=== PATIENT | female | born 1990 | race Caucasian/White ===

== ENCOUNTER 2017-06-11 16:12 | Emergency (ER) | payer MEDICAID, SELFPAY ==
[2017-06-11 16:14] VITALS: BP 122/77; PULSE 78; RESP 16; TEMP 36.8; O2SAT 98; BMI 22.1
[2017-06-11] MEDS: Ondansetron 4 MG/2 ML Vial IV ×2 (18:03→20:40)
[2017-06-11] MEDS: 0.9% Normal Saline 1,000 ML 150 ML IV (18:04)
[2017-06-11 18:08] LABS: Absolute Lymphocyte Count 1.79 X10^3/ul (0.83-4.51); Basophil# 0.07 X10^3/uL; Basophil% 0.5 % (0-1); Eosinophil# 0.06 X10^3/uL; Eosinophils% 0.5 % (0-5); Hematocrit 37.6 % (37-47); Hemoglobin 11.9 g/dl (12.0-15.0); Lymphocyte # 1.79 X10^3/ul (4.0); Lymphocyte % 14.1 % (19-41); Mean Corp Hgb Conc 31.6 g/gl (32-36); Mean Corpuscular Hgb 29.2 pg (27.0-32.0); Mean Corpuscular Volume 92.2 fL (81-99); Mean Platelet Vol. 10.3 fl (6.2-12.0); Monocyte# 0.76 X10^3/uL; Neutrophil # 10.04 X10^3/uL (2.7-7.7); Neutrophil % 78.7 % (47-70); Platelet Count 269 K/mm3 (150-450); RBC Distribution Width CV 13.3 % (11.6-14.6); RBC Distribution Width SD 44.2 fl (35.1-43.9); Red Blood Count 4.08 M/mm3 (4.2-5.4); White Blood Count 12.7 K/mm3 (4.4-11.0)
[2017-06-11 18:10] LABS: POSITIVE COUNT NO; POSITIVE DIFFERENTIAL NO; POSITIVE MORPHOLOGY NO
[2017-06-11 18:15] VITALS: BP 121/69; PULSE 75; RESP 16
[2017-06-11 18:18] LABS: Anion Gap 4 (5-15); BUN 13 mg/dL (7-18); BUN/Creat Ratio 17.9 RATIO (10-20); Calcium,Total 9.2 mg/dL (8.5-10.1); Chloride 108 mmol/L (98-107); Creatinine, Serum 0.72 mg/dL (0.55-1.02); EST Glomerular Filtration Rate 103 mL/min (>60); Est Glom Filt Rate - Afr Amer 124 mL/min (>60); Estimated Creatinine Clearance 115.14 ml/min; Glucose 96 mg/dL (74-106); Potassium 3.7 mmol/L (3.5-5.1); Sodium Level 140 mmol/L (136-145)
[2017-06-11 18:29] LABS: Pregnancy, Serum, hCG Quali. NEGATIVE Negative (0-9 Nonpreg)
[2017-06-11 19:28] LABS: Mucous, Urine 0 SEEN /hpf (<or=2+)
[2017-06-11 19:30] LABS: Color, Urine Yellow (Yellow); Glucose, Dipstick Normal (Normal); Ketone-Dipstick 15 mg/dl (Negative); Leukocyte Esterase-Dipstick 100 /ul (Negative); Nitrite-Dipstick Negative (Negative); Occult Blood-Urine 50 /ul (Negative); Protein-Dipstick 15 mg/dl (Negative); Specific Gravity, Urine 1.025 (1.002-1.030); Urine Bilirubin Dipstick Negative (Negative); Urine Clarity Sl. Cloudy (Clear); Urine Urobilinogen Normal (Normal)
[2017-06-11 19:38] LABS: Amorphous Sediment 1+; Bacteria 1+ /hpf (None Seen); Red Blood Cells-Urine 0-5 SEEN /hpf (0-5); Squamous Epithelial Cells - UA 10-25 SEEN /hpf (5-10); White Blood Cells 10-25 SEEN /hpf (0-5)
--- NOTE | 2017-06-11 20:17 | CT_ITS ---
STUDY: CT ABDOMEN AND PELVIS WITH CONTRAST REASON FOR EXAM: Female, 26 years old. Right lower quadrant pain. RADIATION DOSAGE (If Supplied By Facility): CTDIvol = ( 7.64 ) mGy, DLP = ( 451.87 ) mGycm TECHNIQUE: Transaxial images were obtained from the dome of the diaphragm to the symphysis pubis without oral contrast. 100ML ml of Isovue 300 contrast was administered. Sagittal and coronal images were reconstructed. Individualized dose optimization techniques were used for this CT. COMPARISON: 11/17/2007 FINDINGS: The visualized lung bases are clear. The visualized portions of the heart and pericardium are within normal limits. There are no calcified gallstones present. There is focal fatty infiltration of the liver adjacent to the falciform ligament. The liver is otherwise within normal limits. There are no suspicious hepatic lesions. The spleen is normal in size. The pancreas is within normal limits. The adrenal glands are within normal limits. There are no obstructing renal stones. There is no hydronephrosis. There are no focal renal lesions. Normal visualized stomach. There is no bowel obstruction or inflammation. The appendix is visualized and appears normal. The aorta is normal in caliber. There is mesenteric lymphadenopathy noted in the right lower quadrant. There is no free air, free fluid or fluid collection. There is a 3.8 x 3.7 cm complex cyst in the left adnexa. There are no destructive osseous lesions. CT/Abdomen/Pelvis W IV Cont ONLY IMPRESSION: No bowel obstruction or inflammation. Normal appendix. Right lower quadrant mesenteric lymphadenopathy. This may represent mesenteric lymphadenitis. 3.8 x 3.7 cm complex cyst in the left adnexa. If indicated, further evaluation with ultrasound can be performed. Electronically Signed: Jr Rios, at 20:49 EST Tel , Service support ,
[2017-06-11 20:42] VITALS: BP 106/65; PULSE 60; RESP 16; O2SAT 100
--- NOTE | 2017-06-11 21:37 | ED.DCSUM_ITS ---
- ER Visit Summary Date of Service: 06/11/17 Chief Complaint: Anal pain, nausea, vomiting, diarrhea History of Present Illness: The patient is a 26 F with the above symptoms for the past 5 days. Patient states she went to urgent care [facility] and was sent to the ER due to right lower quadrant pain on exam. She has not had a fever. She does not have urinary symptoms. She is unsure if she may be . She states she has the implant in her arm but she did become twice previously with the implant. Physical Examination: Vital signs are unremarkable. Patient sitting upright in bed no acute distress. She is nontoxic appearing. Head neck examination is unremarkable. Heart is regular rate and rhythm. Lung sounds are clear. Abdomen is soft with minimal tenderness in the right lower quadrant. There is no guarding or rebound. Test Results: CBC was a white count 12.7 with 78% neutrophils. Chemistry studies are normal. Urinalysis shows 15 ketones with no sign of acute infection. test is negative. Emergency Department Course and Treatment: She was given a small dose of morphine, Zofran, and IV fluids. On repeat evaluation she continued to complain of right lower quadrant pain. She continued to have focal tenderness in the right lower quadrant. CT abdomen pelvis with IV contrast was obtained and reveals evidence of right lower quadrant mesenteric lymphadenopathy. There is a cyst noted in the left adnexa. Results were discussed with her. She will be given Zofran for home. Treatment Plan: [] Disposition: Discharge Impression: Mesenteric adenitis This note was generated with [employer] dictation software. It may contain incorrect words, spelling, and punctuation that were not noted in review of the chart prior to signing ED Disposition - Plan for ED Patient: Disposition: Home or Assisted Living Chief Complaint: Abd Pain Instructions: ED Adenitis Mesenteric Prescriptions: Ondansetron [Zofran Odt] 4 mg PO Q8H PRN PRN #10 tablet PRN Reason: Nausea Referrals: Fortunato Hardy MD [Primary Care Provider] - 1-2 Weeks
[2017-06-11] MEDS: Ondansetron ODT 4 MG Tablet PO (21:49)
== END 2017-06-11 21:54 | disposition home or self-care (01) ==
PROVIDERS: Emergency Provider Emergency Medicine; Family Provider Family Medicine; PCP Family Medicine
DX: I88.0 Nonspecific mesenteric lymphadenitis (principal)
CPT/HCPCS: 74177; 80048; 81001; 84703; 85025; 96361; 96374; 96375; 96376; 99283; J7030; J7040; Q9967; J2405

== ENCOUNTER 2017-06-20 01:47 | Emergency (ER) | payer MEDICAID, SELFPAY ==
[2017-06-20 01:48] VITALS: BP 142/75; PULSE 75; RESP 16; TEMP 36.7; O2SAT 100; BMI 24.2
--- NOTE | 2017-06-20 01:48 | RAD_ITS ---
STUDY: X-RAY - RIGHT KNEE REASON FOR EXAM: Female, 26 years old. Hit knee on dresser one day ago. Anterior knee pain. TECHNIQUE: 4 view(s) of the knee. COMPARISON: None. FINDINGS: Normal visualized distal femur. Normal visualized proximal tibia and fibula. Normal proximal tibiofibular articulation. Normal medial femorotibial compartment. Normal lateral femorotibial compartment. Normal patellofemoral articulation. The soft tissue structures are unremarkable. RAD/Knee 4 or More Views IMPRESSION: Normal x-ray examination of the knee. Electronically Signed: Ahmet Etienne MD at 2:52 EST , Service support ,
--- NOTE | 2017-06-20 01:49 | ED.VISSUMM ---
- ER Visit Summary Date of Service: 06/20/17 Chief Complaint: Right knee injury History of Present Illness: The patient is a 26 F is otherwise healthy and presents to the emergency department with right knee injury. Patient states she was stepping over a baby gate yesterday. She states that she stepped forward and struck her right knee against the corner of a dresser. She had some immediate pain. Since then, she has noticed some bruising. She does describe some pain when she bends the knee. She did not fall. She did not strike her head. She denies any other injury. The patient has tried Motrin with little improvement of her pain. Physical Examination: Exam is relatively unremarkable. Patient does have a small contusion over the patella. Her extension is preserved. There is no gross laxity. There is no effusion of the knee. Pulses are normal. The skin is intact. Test Results: X-rays of the knee show no acute abnormality. Emergency Department Course and Treatment: Patient was treated with Naprosyn for her contusion. Patient underwent plain films which show no evidence of acute fracture or other abnormality. I do feel that her symptoms are likely secondary to contusion. She will be kept on anti-inflammatories. The patient be given an Colten wrap for comfort. She will be discharged home, return with any worsening symptoms. Treatment Plan: [] Disposition: Discharge Impression: 1. Right knee contusion This note was generated with [employer] dictation software. It may contain incorrect words, spelling, and punctuation that were not noted in review of the chart prior to signing ED Disposition - Plan for ED Patient: Chief Complaint: Lower Extremity Injury Instructions: ED Sprain Knee Prescriptions: Naproxen [Naprosyn] 500 mg PO BID #20 tab Referrals: Fortunato Hardy MD [Primary Care Provider] -
[2017-06-20] MEDS: Naproxen 500 MG Tablet PO (01:55)
[2017-06-20 02:29] VITALS: BP 138/82; PULSE 73; RESP 17; O2SAT 97
== END 2017-06-20 02:30 | disposition home or self-care (01) ==
LOC: ED 02:21
PROVIDERS: Emergency Provider Emergency Medicine; Family Provider Family Medicine; PCP Family Medicine
DX: S80.01XA Contusion of right knee, initial encounter (principal); W22.8XXA Striking against or struck by other objects, initial encounter; Y93.9 Activity, unspecified; Z72.0 Tobacco use
CPT/HCPCS: 73564; 99283

== ENCOUNTER 2018-01-28 17:08 | Emergency (ER) | payer MEDICAID, SELFPAY ==
[2018-01-28 17:09] VITALS: BP 117/73; PULSE 66; RESP 18; TEMP 36.7; O2SAT 100; BMI 25.2
--- NOTE | 2018-01-28 17:21 | CT_ITS ---
STUDY: CT ABDOMEN AND PELVIS WITHOUT CONTRAST REASON FOR EXAM: Female, 27 years old. Right lower quadrant abdominal pain and swelling. RADIATION DOSAGE (If Supplied By Facility): CTDIvol = ( 6.58 ) mGy, DLP = ( 340.31 ) mGycm TECHNIQUE: Transaxial images were obtained from the dome of the diaphragm to the symphysis pubis without oral contrast, and without intravenous contrast. Sagittal and coronal images were reconstructed. Individualized dose optimization techniques were used for this CT. COMPARISON: 06/11/2017. FINDINGS: The visualized lung bases are unremarkable. The visualized portions of the heart are within normal limits. Normal liver. Normal gallbladder and extrahepatic biliary system. Normal spleen. Normal pancreas. Normal bilateral adrenal glands. Normal right kidney. Normal left kidney. The aorta is normal in caliber. There is no bowel obstruction or inflammatory change. The appendix is normal. There is no free fluid, free air, or organized collection. The bladder is not distended. The uterus is grossly unremarkable. There is a 4 x 3.5 x 4.4 cm complex cystic lesion in the left adnexa, which appears stable to minimally increased compared to the prior study. Normal urinary bladder. Normal abdominal wall. Normal osseous structures. CT/Abdomen/Pelvis without Cont IMPRESSION: 1. No acute process. 2. A 4 x 4.4 cm complex left ovarian cystic lesion, minimally increased from the prior study. Consider ultrasound for further evaluation and characterization. Electronically Signed: Lucita Rodriguez MD at 18:48 EDT Tel , Service support ,
--- NOTE | 2018-01-28 17:26 | ED.VISSUMM ---
- ER Visit Summary Date of Service: 01/28/18 Chief Complaint: [Abdominal pain] History of Present Illness: The patient is a 27 F [since the emergency department complaint of abdominal pain that started around 5 AM this morning. Patient states that the pain awoke her this morning. Patient rates the pain currently is an 8 out of 10 and she describes it as a sharp stabbing pain a kind of radiates across the left side of the abdomen. Patient denies any fever. She denies any vomiting. She denies any diarrhea. Patient denies any blood in her stool or black tarry stool. Patient's last menstrual period was about a week and a half ago. Patient has not missed any periods. Patient is never had pain like this before. Patient denies urinary symptoms.] Physical Examination: [HEENT-PERRLA, EOMI. Cranial nerves II through XII grossly intact. TMs clear. Mucous membranes moist. No adenopathy. Cardiovascular-regular rate and rhythm without murmur or ectopy Lungs-clear to auscultation, chest wall stable without crepitus or subcu emphysema Abdomen-normoactive bowel sounds, soft. Patient does have some tenderness palpation over right lower quadrant with some guarding. There is no rebound, rigidity, or perineal signs. Extremities-intact ?4, normal range of motion, normal pulses, atraumatic] Test Results: CBC with differential is normal. Chemistries were unremarkable. LFTs were normal. Urinalysis was normal. HCG was negative. CT scan of the abdomen pelvis without contrast showed a normal appendix and a 4 x 4.4 cm left ovarian cyst which is just slightly enlarged from prior study. [] Emergency Department Course and Treatment: [Patient was medicated with Toradol and had some pain relief with that.] Treatment Plan: [Patient will be advised to follow-up with Dr. Mortensen who is her primary READING PROFESSOR. Patient will be given a prescription for 10 Percocet for severe pain.] Disposition: [Discharged home in stable condition] Impression: [Abdominal pain-etiology uncertain] This note was generated with [employer] software. It may contain incorrect words, spelling, and punctuation that were not noted in review of the chart prior to signing ED Disposition - Plan for ED Patient: Chief Complaint: Abd Pain Referrals: Fortunato Hardy MD [Primary Care Provider] -
[2018-01-28] MEDS: 0.9% Normal Saline 1,000 ML 125 ML IV (17:36)
[2018-01-28] MEDS: Ketorolac 30 MG/ML Syringe IV (17:36)
[2018-01-28 17:51] LABS: Absolute Lymphocyte Count 2.29 X10^3/ul (0.83-4.51); Absolute Neutrophil Count 5.6 X10^3/uL (2.0-7.7); Basophil# 0.02 X10^3/uL; Basophil% 0.2 % (0-1); Eosinophil# 0.11 X10^3/uL; Eosinophils% 1.3 % (0-5); Hematocrit 35.9 % (37-47); Hemoglobin 11.2 g/dl (12.0-15.0); Lymphocyte # 2.29 X10^3/ul (4.0); Mean Corp Hgb Conc 31.2 g/gl (32-36); Mean Corpuscular Hgb 28.6 pg (27.0-32.0); Mean Corpuscular Volume 91.6 fL (81-99); Mean Platelet Vol. 9.7 fl (6.2-12.0); Monocyte# 0.51 X10^3/uL; Neutrophil # 5.56 X10^3/uL (2.7-7.7); Neutrophil % 65.5 % (47-70); POSITIVE COUNT NO; POSITIVE DIFFERENTIAL NO; POSITIVE MORPHOLOGY NO; Platelet Count 306 K/mm3 (150-450); RBC Distribution Width CV 13.7 % (11.6-14.6); RBC Distribution Width SD 45.1 fl (35.1-43.9); Red Blood Count 3.92 M/mm3 (4.2-5.4); White Blood Count 8.5 K/mm3 (4.4-11.0)
[2018-01-28 18:02] LABS: White Blood Cells 0 SEEN /hpf (0-5)
[2018-01-28 18:05] LABS: ALB/GLOB Ratio 0.9 RATIO (0.9-2.4); AST(SGOT) 8 U/L (15-37); Alanine Aminotransfer ALT/SGPT 15 U/L (13-56); Albumin, Serum 3.5 g/dL (3.2-5.0); Alkaline Phosphatase 47 U/L (45-117); Anion Gap 6 (5-15); BUN 12 mg/dL (7-18); BUN/Creat Ratio 16.5 RATIO (10-20); Calcium,Total 8.4 mg/dL (8.5-10.1); Chloride 108 mmol/L (98-107); Creatinine, Serum 0.73 mg/dL (0.55-1.02); EST Glomerular Filtration Rate 102 mL/min (>60); Est Glom Filt Rate - Afr Amer 123 mL/min (>60); Estimated Creatinine Clearance 108.37 ml/min; Globulin 3.9 g/dL (2.2-4.2); Glucose 101 mg/dL (74-106); Potassium 3.7 mmol/L (3.5-5.1); Protein, Total 7.4 g/dL (6.4-8.2); Sodium Level 141 mmol/L (136-145)
[2018-01-28 18:09] LABS: Color, Urine Yellow (Yellow); Glucose, Dipstick Normal (Normal); Ketone-Dipstick Negative (Negative); Leukocyte Esterase-Dipstick Negative /ul (Negative); Nitrite-Dipstick Negative (Negative); Occult Blood-Urine 25 /ul (Negative); Protein-Dipstick Negative (Negative); Specific Gravity, Urine 1.015 (1.002-1.030); Urine Bilirubin Dipstick Negative (Negative); Urine Clarity Cloudy (Clear); Urine Urobilinogen Normal (Normal)
[2018-01-28 18:09] LABS: Pregnancy, Serum, hCG Quali. NEGATIVE Negative (0-9 Nonpreg)
[2018-01-28 18:22] LABS: Bacteria 3+ /hpf (None Seen); Mucous, Urine 2+ /hpf (<or=2+); Red Blood Cells-Urine 0-5 SEEN /hpf (0-5); Squamous Epithelial Cells - UA 10-25 SEEN /hpf (5-10)
--- NOTE | 2018-01-28 19:06 | ED.DEP ---
ED Disposition - Plan for ED Patient: Chief Complaint: Abd Pain Instructions: ED Abdominal Pain Unkn Cause Prescriptions: Oxycodone HCl/Acetaminophen [Percocet 5/325] 1 tab PO Q6H PRN PRN 3 Days #10 tab PRN Reason: Pain Referrals: Fortunato Hardy MD [Primary Care Provider] - Wendy Mortensen MD [STAFF PHYSICIAN] - 3-5 Days
[2018-01-28 19:16] VITALS: RESP 14
== END 2018-01-28 19:19 | disposition home or self-care (01) ==
PROVIDERS: Emergency Provider Emergency Medicine; Family Provider Family Medicine; PCP Family Medicine
DX: R10.9 Unspecified abdominal pain (principal); N83.292 Other ovarian cyst, left side
CPT/HCPCS: 74176; 80053; 81001; 84703; 85025; 96361; 96374; 99283; J7030; A4216

== ENCOUNTER 2018-04-11 14:35 | Outpatient (RCR) | payer MEDICAID, SELFPAY ==
--- NOTE | 2018-04-11 16:28 | HP.OTEVAL ---
Patient's Visit Information GM MORENO is a 27 year old F, referred to Occupational Therapy by Fortunato Hardy MD, with a diagnosis of L thumb pain. Date of Evaluation: 04/11/18 Occupational Therapist: Alyse Abdi - Subjective Subjective: Pt. arrived as referral from Dr. Hardy's office. She noted thumb pain started about two weeks ago. Dr. Hardy gave her a forearm based prefabricated thumb spica. She does not work outside home. She does have two kids to care for 6 y/o and 2 y/o but notes she does not need to lift anymore. - Pain L thumb 6 Pain Intensity Range: 3, 9 - Objective Concerns: Please send over reports from imaging Pt. has on thumb. Additionally, Pt. noted she has been icing thumb 2-4 hours. Educated to not complete but 10-12 mins max for 2-3x daily. - ROM Wrist: flexion R 0-80, L 0-66; extension R 0-46, L 0-54 MP: R 0-67, L 0-55 IP: R -5-73, L -7-47 Opposition: R 0-20, L 0-14 - 4/10 pain MP: WFL PIP: WFL DIP: WFL ROM Comments: radial dev R 0-16, L 0-15. ulnar dev R 0-25, L 0-35 - Strength Electronic Field Service Engineer: R 62, L 39 Lateral Pinch: R 17, L 10 Tripod Pinch: R 12, L 8 Tip-to-Tip Pinch: R 6, L 6 - Sensation Thumb: dorsal R 2.83 L 5.18 (red lined); Volar R 2.83, L 2.83 Index: dorsal R 2.83 L 2.83; Volar R 2.83, L 2.83 Middle: dorsal R 2.83 L 2.83; Volar R 2.83, L 2.83 Ring: dorsal R 2.83 L 2.83; Volar R 2.83, L 2.83 Little: dorsal R 2.83 L 2.83; Volar R 2.83, L 2.83 Sensation Comments: Sensory tested on distal phalanx at L thumb with 5.18. This red lined and indicates increased sensory deficits with need to use vision to compensate. - Special Tests WHAT Test: positive- with pain but not true reading of DeQuervains - Quick DASH-Disab of Arm,Shoulder& Hand Quick DASH Score: 38.6350 - Goals Goal:: Gm to increased L hand strength by 10-15 lbs to promote increased ability to complete gripping related tasks to promote stability of wrist and thumba nd decrease pain by d/c. Goal:: Angle to have no more than 1/10 pain with repetitive hand and wrist movement to promote increased ability to use L hand at PLOF 80% of the time by d/c. Goal:: Gm to use edema management techniques to control edema of L thumb to promote increased ROM and decreased swelling by d/c. Goal:: Angle L dorsal thumb sensation to match R unaffect thub sesnation to promote return of sesnation to WFL to promote increased safety and perception for ADL/IADls with L hand. Goal:: Gm to be (I) to complete and implement proper wrist and hand movements to promote increased alignment and decreased stress of L thumb with ADl/IADLs to promote returning to PLOF by d/c. Goal:: Gm to be (I) to complete all ADl at PLOF 4/5 trials 80% of the time with good wrist mechanics by d/c. Goal:: Gm to be (I) to complete all HEP related exercises to decrease risk of stiffness or further injury and promote increased stablity of wrist and thumb 4/5 trials 80% of the time by d/c . - Rehabilitation General Assessment: Gm arrived for OT evaluation on this date of 04/11/18. She has increased sensory deficits, some ROM deficits, and decreased strength noted in L affected hand. Left thumb pain is limiting for Gm. She is able to complete formation of composite fist but thumb movements increase pain. She shows increased pain with finkelstien test but dispersion is not over anatomical snuff pouch area but around EPB distribution pattern of lateral thumb. She is getting further imaging to rule out break. She is unable to recall injury to thumb region to cause trauma. OT to work on sensory reintegration, ROM, strength, edema management, and general pain management with use of modalities. Rehabilitation Potential: Good - Anticipated Interventions Anticipated Interventions: Early Active Motion, A/AAROM/PROM, Strengthening, Edema Control, Sensory Retraining, Modalities, Orthoses, Joint Protection/Energy Conservation, Ergonomic Education, Fine Motor Coord/[place], ADL Training, Caregiver Training, Home Program - Visit Plan Frequency: 2x /Week Duration: 4 Weeks General Plan: OT to work on sensory reintegration, ROM, strength, edema management, and general pain management with use of modalities. TEXT: Thank you for the opportunity to evaluate your patient. For Medicare and Medicare HMO plans, please review the plan of care and approve it. It will need to be FAXED BACK to us at [phone] for Medicare purposes. Please let me know if there are questions or concerns regarding this plan of care. Physician Signature: Date:
--- NOTE | 2018-10-14 17:42 | HP.OTDCSUM ---
HP - OT D/C Summary It has been my pleasure to treat MARIBELL MORENO under orders from Fortunato Hardy MD, for the diagnosis of L thumb pain for a total of 1 visit(s). Please see the following information for a summary of their discharge status. - Goals Patient Goals: Regain Mobility, Regain Strength, Decrease Pain, Return to Work, Improve Fine Motor Skills, Use Hand/Wrist/Arm Normally Again, Sleep Better, Decrease Tingling/Numbness, Increase ROM, Be More Independent in ADLS, Decrease Sensitivity, Resume Former Household Responsibilities (Cooking,Cleaning,Yard, etc.), Resume Hobbies Goal:: Maribell to increased L hand strength by 10-15 lbs to promote increased ability to complete gripping related tasks to promote stability of wrist and thumba nd decrease pain by d/c. Goal:: Angle to have no more than 1/10 pain with repetitive hand and wrist movement to promote increased ability to use L hand at PLOF 80% of the time by d/c. Goal:: Maribell to use edema management techniques to control edema of L thumb to promote increased ROM and decreased swelling by d/c. Goal:: Angle L dorsal thumb sensation to match R unaffect thub sesnation to promote return of sesnation to WFL to promote increased safety and perception for ADL/IADls with L hand. Goal:: Maribell to be (I) to complete and implement proper wrist and hand movements to promote increased alignment and decreased stress of L thumb with ADl/IADLs to promote returning to PLOF by d/c. Goal:: Maribell to be (I) to complete all ADl at PLOF 4/5 trials 80% of the time with good wrist mechanics by d/c. Goal:: Maribell to be (I) to complete all HEP related exercises to decrease risk of stiffness or further injury and promote increased stablity of wrist and thumb 4/5 trials 80% of the time by d/c . - D/C Information If there are questions or concerns regarding this patient's occupational therapy, please fell free to call me at [phone]. Thank you for the referral of this patient. Sincerely, Alyse Abdi, OTR/L
--- NOTE | 2018-10-14 17:52 | HP.OT.NRP ---
HP - Discharge Summary - Patient Information MARIBELL MORENO was seen in my office for initial evaluation on 04/11/18. The following Plan of Care was established for this patient: Initial Frequency: 2x /Week Initial Duration: 4 Weeks - Anticipated Interventions Anticipated Interventions: Early Active Motion, A/AAROM/PROM, Strengthening, Edema Control, Sensory Retraining, Modalities, Orthoses, Joint Protection/Energy Conservation, Ergonomic Education, Fine Motor Coord/[place], ADL Training, Caregiver Training, Home Program This patient was last seen in our office 04/11/19. Pertinent comments regarding their Occupational therapy will appear below: Seen for evaluation only and did not completed further follow-up sessions. At this point I will be discontinuing this patient from occupational therapy. I would be happy to see this patient again in the future if found appropriate by the physician. Thank you! Alyse Abdi, OTR/L
== END 2018-04-11 19:00 | disposition home or self-care (01) ==
LOC: OT 14:35
PROVIDERS: Family Provider Family Medicine; PCP Family Medicine; Visit Provider Family Medicine
DX: M79.645 Pain in left finger(s) (principal)
CPT/HCPCS: 97166

== ENCOUNTER → 2018-04-22 20:59 | Outpatient (CLI) | payer MEDICAID, SELFPAY ==
[2018-04-22 09:26] VITALS: BMI 26.9
[2018-04-26 15:47] LABS: HPV Reflexed? NOT INDICATED
== END ==
PROVIDERS: Family Provider Family Medicine; PCP Family Medicine; Referring Provider Obstetrics & Gynecology; Visit Provider Obstetrics & Gynecology
DX: Z12.4 Encounter for screening for malignant neoplasm of cervix (principal)
CPT/HCPCS: 87624; 88175; G0145

== ENCOUNTER 2018-04-25 10:47 | Day surgery (SDC) | payer MEDICAID, SELFPAY ==
[2018-04-22 09:26] VITALS: BMI 26.9
[2018-04-25] VITALS (7 sets, daily range): BP systolic 100–121; BP diastolic 58–89; PULSE 57–77; RESP 14–18; TEMP 36.3–37.4; O2SAT 96–100; BMI 26.9
--- NOTE | 2018-04-25 | OV_PTH ---
PATIENT: MARIBELL MORENO [place] [facility] [place][id number] AGE/SX: 27/F ROOM: RE04/25/[address]: Dr. Wendy Mortensen MD : 1990 BED: DIS: 04/25/2018 SPEC #: [id number] RECD: 04/26/18 11:18 STATUS: AMRITA AMBROSIO #: [id number] DEVORA: 04/25/18 00:[address]: Wendy Mortensen DEPT: SURGICAL PATHOLOGY RECD BY: Isaiah Melton ENTERED: 04/26/18 11:19 SP TYPE: OVARY OTHR DR: Dr. Fortunato Hardy MD Tissues: OVARIAN CYST Procedures: Special Stain Group II PAS Stain (control) Surgery Specimen Level II Surgery Specimen Level IV HEADER OPERATION: Laparoscopic bilateral salpingectomy, right ovarian cystectomy PRE-OP DIAGNOSIS: Chronic pelvic pain; request for sterilization TISSUE SUBMITTED: Bilateral fallopian tubes, right ovarian cyst MICROSCOPIC DIAGNOSIS Right and left fallopian tubes, bilateral salpingectomies: Two complete segments of fallopian tubes with no pathologic change. Right ovarian cyst, cystectomy and partial oophorectomy: Benign mixed serous and mucinous cystadenoma. See comment. AM:devante 04/29/18 COMMENT PAS stain with matched control supports the above diagnosis. MICROSCOPIC DESCRIPTION Slides are reviewed. GROSS DESCRIPTION Received in fixative is one container labeled with the patient's name and designated bilateral fallopian tubes, right ovarian cyst. The specimen consists of bilateral fallopian tubes including fimbrial ends each measuring 8 cm in length and 0.5 cm in diameter. Sections do not reveal any mass lesion. The fallopian tubes are not identified as right or left. Sections reveal unremarkable cut surfaces. Also present in the container are two pieces of soft tissue consistent with portion of cyst wall measuring in aggregate 4 x 3 x 1.5 cm. The cyst wall appears smooth without any papillation. The cyst appears to be multiloculated. A portion of the cyst is filled with clear fluid. Business Development Coordinator sections are submitted in four cassettes as follows: 1 & 2 - bilateral fallopian tubes with each cassette containing one fallopian tube, 3 & 4 - cyst. / VERNELL:devante 04/26/18 TC:5 CPT: 41097, 27914 x2, 39630
--- NOTE | 2018-04-25 09:35 | PCM.HPOB.BLA ---
- Problem List (1) Request for sterilization Status: Acute (2) Chronic pelvic pain in female Status: Chronic (3) Complex ovarian cyst Status: Chronic (4) Dysthymia Status: Chronic Comment: celexa and recommended counseling History and Physical Date of Admission: 04/25/18 Intake Vital Signs 04/18/18 Height 5 ft 6 in 04/18/18 Weight: 167 lb 2 oz 04/18/18 Body Mass Index (BMI) 26.9 04/18/18 Blood Pressure 118/72 Intake Visit Reasons: Pre-op appointment/Sign title 19 Fruit Picker Machine Operator Required: No Is patient in pain?: No Allergies hydrocodone [From Vicodin] Allergy (Verified 04/18/18 14:59) Hives latex Allergy (Verified 04/18/18 14:59) Hives Medications cyclobenzaprine 10 mg tablet 10 mg PO TID PRN #30 tab 02/08/18 [Rx Confirmed 04/18/18] Citalopram [Celexa] 20 mg PO DAILY 04/18/18 [History Confirmed 04/18/18] Is last menstrual period known: Yes Last Menstral Period: 03/25/18 Post menopausal: No Patient : No : No [facility] Medical History Asthma (Acute) Social History Smoking Status: Never smoker alcohol intake: current details: occasionally substance use type: does not use caffeine: Yes what type of physical activity do you participate in: walking frequency: daily seatbelt use: always do you feel safe at home: Yes additional social history: HPI Pre-op appointment/Sign title 19: Details: MARIBELL MORENO is a 27 year old who presents for sterilization and cmplex ovarian cyst. she is still havin gintermittent pain from this. she takes motrin and muscle relaxors and uses a heating pad. Female Reproductive History Last Menstral Period: 03/25/18 Pregancy History 4 Elective abortions Hx Para 2 Spontaneous abortions 1 Hx # Term Pregnancies Ectopic pregnancies Hx # Pregnancies Multiple births # of living children Past Pregnancies Del. Date Name GA/Weeks Outcome Route Bth Weight Infant Gen Labor Lgth Anesthesia Del Locatn Provider FOB 07/27/11 Adiel 40 live - full term 7lbs 7oz Male spinal [facility] Dr. Carrion 05/22/13 Armando 39 live - full term 7lbs 7.5oz Male spinal [facility] Dr. Mortensen 04/17/16 Mir 39 live - full term 8lbs Male spinal [facility] Dr. Mortensen Delivery Date: 04/17/16 On 12/07/17 @ 14:32 Zahida Schwartz No issues during or delivery. Delivery Date: 05/22/13 On 12/07/17 @ 14:31 Zahida Schwartz No issues during or delivery. Delivery Date: 07/27/11 On 12/07/17 @ 14:30 Zahida Schwartz No issues during . Baby got stuck due to csection. ROS Const Constitutional: Denies poor appetite, headache(s), fever(s), increased appetite, weight gain, weight loss or fatigue ENT ENT: Denies dry mouth or dizziness Cardio Card: Denies chest pain Resp Resp: Denies dyspnea or cough GI GI: Reports as per HPI and abdominal pain; denies vomiting, constipation or nausea : Reports as per HPI and pelvic pain; denies difficulty urinating, blood in urine, urinary frequency, urinary incontinence, urinary hesitancy, urinary urgency, vaginal discharge, vaginal dryness, vaginal odor, vaginal itching, other, painful urination or nipple discharge Musc Musc: Denies muscle weakness, joint pain or back pain Skin Skin/Breast: Denies hair loss, change in hair, dry skin, breast pain, breast skin changes, breast lump or nipple discharge Neuro Neuro: Denies dizziness Endo Endo: Denies cold intolerance, increased thirst, excessive sweating or heat intolerance Kendrick/Lymph Hematologic/Lymphatic: Denies easy bleeding, Denies easy bruising, Denies enlarged lymph nodes Exam Const General: cooperative, healthy appearing, comfortable, no acute distress, well developed Nutritional Appearance: average body habitus Orientation: alert [facility] Head: normal to inspection, normocephalic Ears: hearing grossly normal bilaterally, external ears normal Nose: external nose normal, nares normal Face and sinus: normal facial exam Neck Neck: normal visual inspection, trachea midline, no lymphadenopathy Thyroid: thyroid normal Resp Effort & Inspection: normal respiratory effort ABDN soft non distended tender to palpation Musc Other: gross motor intact no deficits, full bilateral strength Skin General: no rashes or lesions noted Neuro Motor: muscle tone normal throughout Assessment & Plan Problems 1. Request for sterilization Z30.2 2. Chronic pelvic pain in female R10.2; G89.29 3. Complex ovarian cyst N83.299 Plan discussed surgical risks including risks of anesthesia, infection, bleeding, injury to bowel, bladder or blood vessels, and patient wishes to proceed with surgery. discussed risk of regret. Coding Level of Care Code No Charge Diagnoses Request for sterilization Z30.2 Chronic pelvic pain in female R10.2; G89.29 Complex ovarian cyst N83.299 UPDATE- I have seen the patient and performed any clinically relevant updates to the history and physical exam. Wendy Mortensen MD
[2018-04-25 11:06] LABS: Internal QC Validated? YES +Cl - CLEAR BKGD
[2018-04-25 11:10] LABS: Pregnancy, Urine Negative Negative
[2018-04-25 11:28] LABS: Partial Thromboplast Time 38.9 Seconds (24.1-36.2); Prothrombin Time (Protime)PT. 13.5 SECONDS (11.7-14.9)
[2018-04-25 11:36] LABS: AST(SGOT) 8 U/L (15-37); Alanine Aminotransfer ALT/SGPT 16 U/L (13-56); Albumin, Serum 3.4 g/dL (3.2-5.0); Alkaline Phosphatase 48 U/L (45-117); Bilirubin, Direct 0.07 mg/dL (0.00-0.30); Protein, Total 7.4 g/dL (6.4-8.2)
[2018-04-25] MEDS: Bupivacaine 0.25% 30 ML Vial (14:28)
--- NOTE | 2018-04-25 15:18 | OP.PCM_ITS ---
Problem List (1) Request for sterilization Status: Acute (2) Chronic pelvic pain in female Status: Chronic (3) Complex ovarian cyst Status: Chronic (4) Dysthymia Status: Chronic Comment: celexa and recommended counseling Report of Operation Date of Procedure: 04/25/18 Pre-Operative Diagnosis: pelvic pain eft ovarian cyst sterilization request Post-Operative Diagnosis: same Surgery/Procedure Performed:: laparoscopic left ovarian cystectomy and partial left oophorectomy bilateral salpingectomy Description of Surgical Findings:: left enlarged cystic ovary, right simple ovarian cyst, vesicouterine scar tissue automobile mechanic apprentice: Rosie Chau Type of Anesthesia:: General Special Medications: none Specimen's removed: bilateral tubes and part of left ovary Drains: arreola Estimated Blood Loss (mL): 50 cc Fluids Replaced: crystalloid Description of Procedure: Patient was taken in the operating room and was placed under general anesthesia was prepped and draped in normal sterile fashion in the dorsal lithotomy position. Bladder was drained of clear urine and SCDs were on preoperatively. Uterus was sounded and a uterine manipulator was placed after dilating. Attention was then paid to the abdominal portion of the procedure and the umbilicus was elevated with towel clamps and injected with Marcaine and after a 5 mm incision was made and the Veress needle was entered into the abdomen confirmed to be intra-abdominal with a low opening pressure of less than 5 mmHg. Abdomen was insufflated with CO2 gas and a 5 mm optical trocar was placed under direct visualization. A left lower quadrant 5 mm port and a suprapubic port was placed under direct visualization. Uterus was well visualized and the left ovary was noted to be enlarged with a cyst. Using the monopolar scissors incision was made across the ovary and upon doing this there was a rupture of the cyst with gelatinous fluid being removed. The cyst was then dissected away from the normal ovary wall and there was difficulty the cyst from the ovarian tissue, therefor the ovary was transected across and part of the ovarian tissue was removed. this tissue was pulled through the left lower quadrant port site without complication. excellent hemostasis was noted. bilateral tubes were transected across the mesosalpinx and removed without complication, taken out through the suprapubic port site. The right ovary was also inspected and noted to be cystic which was drilled into with the monopolar scissors and clear fluid returned confirming corpus luteal cysts. Excellent hemostasis was noted. Liver and upper abdomen were visualized notably within normal limits and no other gross abnormalities were seen in the abdomen. All instruments removed from the abdomen after gas was desufflated. Port sites were closed with 3-0 Monocryl Steri's and op sites were applied. All instruments removed from the vagina and patient was awoken and taken recovery in stable condition. Grafts/Implants Used: none - Complications none - Admit VTE Documentation VTE Present on Admission: No
--- NOTE | 2018-04-25 15:18 | DCINST_ITS ---
Discharge Diet: No Restrictions - Increase fluid intake for the next 48 hours. Discharge Activity: Return to Normal Activity, May Drive - when you are no longer taking narcotic pain medications., May Shower, May Take a Tub Bath - in 7 days Additional Activity Instructions:: Ambulate often the next week after surgery. Nothing in the vagina for 5 days. Call your doctor if your incision/area has: Continuous Slow Oozing, Sudden Increased Bleeding, Increased Pain/ Swelling, Increased Redness, Foul Smelling Discharge Call your doctor if you observe: Fever of 101 or Higher Allergies/Adverse Reactions: Allergies hydrocodone [From Vicodin] Allergy (Verified 04/22/18 09:23) Hives latex Allergy (Verified 04/22/18 09:23) Hives Medications to take at Discharge cyclobenzaprine 10 mg tablet 10 mg PO TID PRN #30 tab 02/08/18 Citalopram [Celexa] 20 mg PO DAILY 04/18/18 Naproxen [Naprosyn] 250 - 500 mg PO Q8H PRN PRN #30 tablet 04/25/18 Oxycodone HCl/Acetaminophen [Percocet 5-325] 1 - 2 tablet PO Q4H PRN PRN 7 Days #15 tablet 04/25/18 The following prescriptions were given: Oxycodone HCl/Acetaminophen [Percocet 5-325] 1 - 2 tablet PO Q4H PRN PRN 7 Days #15 tablet PRN Reason: Pain Naproxen [Naprosyn] 250 - 500 mg PO Q8H PRN PRN #30 tablet PRN Reason: MILD PAIN Orders to be completed after discharge: Type & Screen Time Frame: 04/25/18, Location: None Selected Primary Care Physician: Fortunato Hardy MD [Primary Care Provider] - Test Results: Test results from this visit will be discussed in further detail at your follow- up appointment, if applicable. Please Follow Up With: Wendy Mortensen MD - [phone]
== END 2018-04-25 18:47 | disposition home or self-care (01) ==
LOC: SDC 10:49 → AC 10:50
PROVIDERS: Anesthesiology; Family Provider Family Medicine; PCP Family Medicine; Referring Provider Obstetrics & Gynecology; Visit Provider Obstetrics & Gynecology
PROC: (CPT 58661; principal; 2018-04-25 12:25)
DX: Z30.2 Encounter for sterilization (principal); D27.0 Benign neoplasm of right ovary; N83.11 Corpus luteum cyst of right ovary; N83.292 Other ovarian cyst, left side; G89.29 Other chronic pain; F34.1 Dysthymic disorder; F32.9 Major depressive disorder, single episode, unspecified
CPT/HCPCS: 58661; 58662; 36415; 80076; 81025; 85610; 85730; 86850; 86900; 88302; 88305; 88313; J7120; J2405

== ENCOUNTER 2018-06-21 18:40 | Emergency (ER) | payer MEDICAID, SELFPAY ==
[2018-06-06 13:50] VITALS: BMI 26.9
[2018-06-21 18:41] VITALS: BP 136/73; PULSE 88; RESP 16; TEMP 37; O2SAT 100; BMI 27.8
--- NOTE | 2018-06-21 19:12 | CT_ITS ---
STUDY: CT ABDOMEN AND PELVIS WITH CONTRAST REASON FOR EXAM: Female, 27 years old. Left lower quadrant RADIATION DOSAGE (If Supplied By Facility): CTDIvol = ( 17.32 ) mGy, DLP = ( 773.67 ) mGycm TECHNIQUE: Transaxial images were obtained from the dome of the diaphragm to the symphysis pubis without oral contrast. Isovue 300 100 IV was administered. Sagittal and coronal images were reconstructed. Individualized dose optimization techniques were used for this CT. COMPARISON: None. FINDINGS: There is minor atelectasis within the dependent portion of the lungs.. The visualized portions of the heart are within normal limits. Liver is normal size.. There is very tiny hypoattenuated density in the right lobe which is too small to characterize bile ducts are not dilated Normal gallbladder and extrahepatic biliary system. Normal spleen. Normal pancreas. Normal bilateral adrenal glands. Normal right kidney. Normal left kidney. Diffuse gastric distention containing retained secretions of uncertain significance.. Mild nonspecific ileus with prominent fecal retention in the ascending colon Normal retrocecal appendix. Normal abdominal aorta. Normal inferior vena cava. Normal retroperitoneum. Normal urinary bladder. There are minor cystic changes of the ovaries bilaterally not atypical for age Normal abdominal wall. Normal osseous structures. CT/Abdomen/Pelvis W IV Cont ONLY IMPRESSION: Diffuse gastric distention and retained secretions of uncertain significance. Nonspecific ileus Minor cystic changes of the ovaries not atypical for age. Pelvic sonogram would be useful for further evaluation if indicated. Electronically Signed: Fortunato Morales MD at 20:33 EST , Service support ,
[2018-06-21] MEDS: 0.9% Normal Saline 1,000 ML 1000 ML IV (19:25)
[2018-06-21] MEDS: Morphine 4 MG/ML Syringe IV (19:25)
[2018-06-21] MEDS: Ondansetron 4 MG/2 ML Vial IV (19:26)
[2018-06-21 19:41] LABS: Bacteria 0 SEEN /hpf (None Seen); Mucous, Urine 0 SEEN /hpf (<or=2+)
[2018-06-21 19:45] LABS: Absolute Lymphocyte Count 2.73 X10^3/ul (0.83-4.51); Absolute Neutrophil Count 6.5 X10^3/uL (2.0-7.7); Basophil# 0.03 X10^3/uL; Basophil% 0.3 % (0-1); Eosinophil# 0.12 X10^3/uL; Eosinophils% 1.2 % (0-5); Hematocrit 36.3 % (37-47); Hemoglobin 11.3 g/dl (12.0-15.0); Lymphocyte # 2.73 X10^3/ul (4.0); Mean Corp Hgb Conc 31.1 g/gl (32-36); Mean Corpuscular Hgb 28.2 pg (27.0-32.0); Mean Corpuscular Volume 90.5 fL (81-99); Mean Platelet Vol. 10.2 fl (6.2-12.0); Monocyte# 0.68 X10^3/uL; Monocyte% 6.7 % (0-10); Neutrophil # 6.53 X10^3/uL (2.7-7.7); Neutrophil % 64.7 % (47-70); POSITIVE COUNT NO; POSITIVE DIFFERENTIAL NO; POSITIVE MORPHOLOGY NO; Platelet Count 283 K/mm3 (150-450); RBC Distribution Width CV 13.4 % (11.6-14.6); Red Blood Count 4.01 M/mm3 (4.2-5.4); White Blood Count 10.1 K/mm3 (4.4-11.0)
[2018-06-21 19:53] LABS: Color, Urine Yellow (Yellow); Glucose, Dipstick Normal (Normal); Ketone-Dipstick Negative (Negative); Leukocyte Esterase-Dipstick Negative /ul (Negative); Nitrite-Dipstick Negative (Negative); Occult Blood-Urine 25 /ul (Negative); Protein-Dipstick Negative (Negative); Specific Gravity, Urine 1.015 (1.002-1.030); Urine Bilirubin Dipstick Negative (Negative); Urine Clarity Sl. Cloudy (Clear); Urine Urobilinogen Normal (Normal)
[2018-06-21 19:57] LABS: Anion Gap 6 (5-15); BUN 10 mg/dL (7-18); BUN/Creat Ratio 16.8 RATIO (10-20); Calcium,Total 8.5 mg/dL (8.5-10.1); Chloride 111 mmol/L (98-107); EST Glomerular Filtration Rate 128 mL/min (>60); Est Glom Filt Rate - Afr Amer 155 mL/min (>60); Estimated Creatinine Clearance 131.85 ml/min; Glucose 94 mg/dL (74-106); Potassium 3.5 mmol/L (3.5-5.1); Sodium Level 141 mmol/L (136-145)
[2018-06-21 19:58] LABS: Red Blood Cells-Urine 0-5 SEEN /hpf (0-5); Squamous Epithelial Cells - UA 10-25 SEEN /hpf (5-10); White Blood Cells 0 SEEN /hpf (0-5)
[2018-06-21 19:59] LABS: Amorphous Sediment 2+
--- NOTE | 2018-06-21 20:04 | ED.DCSUM_ITS ---
- ER Visit Summary Date of Service: 06/21/18 Chief Complaint: Flank pain History of Present Illness: The patient is a [address] Rey Cleary and Dr. Hardy. She reports approximate 3 hours ago she had the abrupt onset of left flank pain 3 days in the left lower quadrant. She describes the pain as sharp. 10 at 10 worsening a 10 currently. Is worsened by sitting up and relieved by remaining still. She denies any associated nausea, vomiting, diarrhea. Last bowel was yesterday. There is been no blood in her stools or black tarry stools. Typically she goes daily. She denies any dysuria frequency. Of note patient is status post hysterectomy April [address] Mortensen. She denies any vaginal bleeding. She reports that her incisions of healed well. No fever or chills. No other complaints. Physical Examination: Vitals: Stable. Afebrile. General: Well-nourished and well-developed. Head: Normocephalic atraumatic. Neck: Supple, no lymphadenopathy. No JVD. Nontender. Cardiovascular: Regular rate and rhythm. No murmurs. Respiratory: No respiratory distress. Clear to auscultation bilaterally. Abdominal: Soft, moderate left lower quadrant tenderness to palpation, nondistended, normal bowel sounds. No guarding, rebound, or peritoneal signs. Back: Nontender. Extremities: Nontender, no edema. Skin: Normal color, no rash. Neurologic: Alert and oriented ?3. Cranial nerves II through XII are intact. Normal strength and sensation. Psych: Normal affect. Test Results: CBC is remarkable for an H&H of 11.3 and 36.3. Chem-7 is more for chloride of 111. UA is negative. Clinical Impression(s) from Imaging Studies Abdomen/Pelvis CT 06/21/18 19:12 IMPRESSION: Diffuse gastric distention and retained secretions of uncertain significance. Nonspecific ileus Minor cystic changes of the ovaries not atypical for age. Pelvic sonogram would be useful for further evaluation if indicated. Electronically Signed: Fortunato Morales MD at 20:33 EST , Service support , Emergency Department Course and Treatment: Patient was treated the dose of morphine and Zofran IV. She is resting comfortably. Treatment Plan: Patient was discussed with Dr. Mortensen. I do not feel that this is gynecologic in origin. She agrees with this. Patient will be discharged with magnesium citrate and Zofran. Instructed to follow-up her primary care physician in 1-2 days if not improving. Return to the emergency department for any worsening symptoms. Disposition: To home in improved and stable condition. Impression: 1. Abdominal pain, uncertain cause. 2. Approximately 2 months status post hysterectomy. This note was generated with [employer] software. It may contain incorrect words, spelling, and punctuation that were not noted in review of the chart prior to signing ED Disposition - Plan for ED Patient: Disposition: Home or Assisted Living Instructions: ED Abdominal Pain Unkn Cause, ED Constipation Prescriptions: Ondansetron [Zofran Odt] 4 mg PO Q8H PRN PRN #10 tablet PRN Reason: Nausea Magnesium Citrate [Citrate Of Magnesia] 300 ml PO X1 #1 bottle Referrals: Fortunato Hardy MD [Primary Care Provider] - 1-2 Days if not improving
[2018-06-21 20:57] VITALS: BP 130/87; PULSE 77; RESP 16; O2SAT 99
== END 2018-06-21 21:00 | disposition home or self-care (01) ==
LOC: ED 19:37
PROVIDERS: Emergency Provider Emergency Medicine; Family Provider Family Medicine; PCP Family Medicine
DX: R10.32 Left lower quadrant pain (principal); Z90.710 Acquired absence of both cervix and uterus
CPT/HCPCS: 74177; 80048; 81001; 85025; 96361; 96374; 96375; 99283; J7030; Q9967; J2405

== ENCOUNTER 2018-07-18 19:32 | Emergency (ER) | payer MEDICAID, SELFPAY ==
[2018-07-18 19:33] VITALS: BP 131/68; PULSE 77; RESP 18; TEMP 36.7; O2SAT 100; BMI 25.9
--- NOTE | 2018-07-18 19:56 | ED.VISSUMM ---
- ER Visit Summary Date of Service: 07/18/18 Chief Complaint: Nausea, vomiting and diarrhea History of Present Illness: The patient is a 27 F past medical history of asthma. Patient states all day she has had mild abdominal cramping with nausea, vomiting diarrhea. States she is thrown up more than 4 times a day has had 8 episodes of brown loose stool. No melena. No hematemesis. Subjective fever but not documented. No dysuria. Physical Examination: Well-appearing young female no acute distress. Vital signs are stable. She is afebrile. Her initial blood pressure is 131/68. HEENT exam mild dry mucous membranes. Neck nontender no lymphadenopathy. Lungs clear to auscultation bilaterally. Heart regular rhythm rate about 70 no murmur. Abdomen soft, nontender, nondistended normal bowel sounds no peritoneal signs. No hernia or masses no signs of obstruction. No localizing tenderness. Right upper and lower quadrants are unremarkable. Patient is moving all 4 extremities. No edema. Back nontender. Neurologically she is awake alert with no focal motor deficits. Test Results: None Emergency Department Course and Treatment: Patient was given the option of p.o. Zofran and oral hydration versus IV meds and IV hydration preferred to have the IV. She will be given IV Zofran and a liter of normal saline. When she is feeling better p.o. fluid challenge if she passes that she will be discharged to home Treatment Plan: Zofran as needed. Plenty of fluids and rest. Return if unable to keep fluids down or feeling worse. Disposition: Discharge Impression: Viral gastroenteritis This note was generated with [email or web address] dictation software. It may contain incorrect words, spelling, and punctuation that were not noted in review of the chart prior to signing ED Disposition - Plan for ED Patient: Referrals: Fortunato Hardy MD [Primary Care Provider] -
--- NOTE | 2018-07-18 19:58 | ED.DEP ---
ED Disposition - Plan for ED Patient: Disposition: Home or Assisted Living Instructions: ED Gastroenteritis Viral Prescriptions: Ondansetron [Zofran Odt] 4 mg PO Q8H PRN PRN #7 tab PRN Reason: zofran Referrals: Fortunato Hardy MD [Primary Care Provider] - 3-5 Days if not improving Additional Instructions: Plenty of fluids and rest. [place] diet and increase as tolerated. Zofran as needed for nausea and vomiting. Follow-up with your doctor if not improving or return if worse.
[2018-07-18] MEDS: 0.9% Normal Saline 1,000 ML 1000 ML IV (20:08)
[2018-07-18] MEDS: Ondansetron 4 MG/2 ML Vial IV (20:08)
[2018-07-18 21:44] VITALS: BP 122/68; PULSE 68; RESP 17; O2SAT 99
== END 2018-07-18 21:45 | disposition home or self-care (01) ==
PROVIDERS: Emergency Provider Emergency Medicine; Family Provider Family Medicine; PCP Family Medicine
DX: A08.4 Viral intestinal infection, unspecified (principal)
CPT/HCPCS: 96361; 96374; 99283; J7030; A4216; J2405

== ENCOUNTER 2018-09-01 18:25 | Emergency (ER) | payer MEDICAID, SELFPAY ==
[2018-09-01 18:26] VITALS: BP 125/82; PULSE 77; RESP 16; TEMP 36.4; O2SAT 99; BMI 27.7
--- NOTE | 2018-09-01 19:05 | ED.VISSUMM ---
- ER Visit Summary Date of Service: 09/01/18 Chief Complaint: Left jaw pain History of Present Illness: The patient is a 27 F presenting with left jaw pain. Patient states she was at the car races in [place] last night. States a piece of rock came up and hit her in the left side of her jaw. She tried Tylenol at home. She presents due to persistent pain left jaw. Her teeth do not feel loose. She denies other injuries. Physical Examination: Vitals are stable. Patient is afebrile. Alert no acute distress. HEENT exam mild left mandible tenderness, midface is stable. Teeth are stable. Neck is nontender Lungs are clear and equal bilaterally. Heart is regular rate and rhythm. Extremities are unremarkable. Skin is warm and dry. No focal neurologic deficit. Remainder of exam is unremarkable. Emergency Department Course and Treatment: Mandible x-ray shows no acute process. She was given a prescription for Naprosyn. Advised to follow-up with her primary care physician. Advised return to ED for worsening complaints. Disposition: Discharge home Impression: Jaw contusion This note was generated with [employer] dictation software. It may contain incorrect words, spelling, and punctuation that were not noted in review of the chart prior to signing ED Disposition - Plan for ED Patient: Instructions: ED Contusion Face Prescriptions: Naproxen [Naprosyn] 500 mg PO BID PRN #20 tablet Referrals: Fortunato Hardy MD [Primary Care Provider] -
--- NOTE | 2018-09-01 19:08 | ED.DCSUM_ITS ---
- ER Visit Summary Date of Service: 09/01/18 Chief Complaint: Left jaw pain History of Present Illness: The patient is a 27 F presenting with left jaw pain. Patient states she was at the car races in [place] last night. States a piece of rock came up and hit her in the left side of her jaw. She tried Tylenol at home. She presents due to persistent pain left jaw. Her teeth do not feel loose. She denies other injuries. Physical Examination: Vitals are stable. Patient is afebrile. Alert no acute distress. HEENT exam mild left mandible tenderness, midface is stable. Teeth are stable. Neck is nontender Lungs are clear and equal bilaterally. Heart is regular rate and rhythm. Extremities are unremarkable. Skin is warm and dry. No focal neurologic deficit. Remainder of exam is unremarkable. Emergency Department Course and Treatment: Mandible x-ray shows no acute process. She was given a prescription for Naprosyn. Advised to follow-up with her primary care physician. Advised return to ED for worsening complaints. Disposition: Discharge home Impression: Jaw contusion This note was generated with [employer] dictation software. It may contain incorrect words, spelling, and punctuation that were not noted in review of the chart prior to signing ED Disposition - Plan for ED Patient: Instructions: ED Contusion Face Prescriptions: Naproxen [Naprosyn] 500 mg PO BID PRN #20 tablet Referrals: Fortunato Hardy MD [Primary Care Provider] -
--- NOTE | 2018-09-01 19:40 | RAD_ITS ---
STUDY: X-RAY - MANDIBLE (COMPLETE) REASON FOR EXAM: Female, 27 years old. Hit left side of the jaw. TECHNIQUE: 4 view(s) of the mandible were obtained. COMPARISON: None. FINDINGS: Normal mandible. Normal visualized right temporomandibular joint. Normal visualized left temporomandibular joint. The remaining visualized osseous structures are normal. The soft tissue structures are unremarkable. RAD/Mandible Min 4 Views IMPRESSION: Normal x-ray examination of the mandible. Electronically Signed: Lucita Rodriguez MD at 20:10 EDT Tel , Service support ,
--- NOTE | 2018-09-01 20:14 | ED.DEP ---
ED Disposition - Plan for ED Patient: Instructions: ED Contusion Face Prescriptions: Naproxen [Naprosyn] 500 mg PO BID PRN #20 tablet Referrals: Fortunato Hardy MD [Primary Care Provider] -
[2018-09-01 20:20] VITALS: RESP 18
== END 2018-09-01 20:21 | disposition home or self-care (01) ==
LOC: ED 18:55
PROVIDERS: Emergency Provider Emergency Medicine; Family Provider Family Medicine; PCP Family Medicine
DX: S00.83XA Contusion of other part of head, initial encounter (principal); W22.8XXA Striking against or struck by other objects, initial encounter; Y93.89 Activity, other specified; Y92.9 Unspecified place or not applicable; Y99.8 Other external cause status
CPT/HCPCS: 70110; 99282

== ENCOUNTER 2019-04-30 11:17 | Emergency (ER) | payer MEDICAID, SELFPAY ==
[2019-04-30 11:19] VITALS: BP 148/86; PULSE 77; RESP 16; TEMP 36.7; O2SAT 100; BMI 28.9
[2019-04-30 12:41] VITALS: BP 109/50; BP 124/73; BP 128/83; PULSE 64; PULSE 66; PULSE 67
--- NOTE | 2019-04-30 12:46 | ED.DCSUM_ITS ---
- ER Visit Summary Date of Service: 04/30/19 Chief Complaint: [Dizziness] History of Present Illness: The patient is a 28 F [presents to the emergency department complaint of dizziness this morning while at work. Patient states that she got up from a seated position and she felt like things were spinning a round and round. She had her temperature checked at work and it was 100. She does complain of a scratchy throat. She does complain of a stuffy nose. She is had occasional cough. Patient states that the whole shop has the flu. Patient denies any abdominal pain. She is currently on her menstrual period. Patient has had prior tubal ligation. Patient has history of asthma. She denies any falls or head injuries. Denies headache.] Physical Examination: [HEENT-PERRLA, EOMI. Cranial nerves II through XII grossly intact. TMs clear. Mucous membranes moist. Pharynx nonerythematous. Uvula in the midline without trismus. No exudates noted. Patient has some mild cervical adenopathy anterior. Cardiovascular-regular rate and rhythm without murmur or ectopy Lungs-clear to auscultation, chest wall stable without crepitus or subcu emphysema Abdomen-normoactive bowel sounds, soft, nontender, no rebound or rigidity, no peritoneal signs. Neuro anhi-zswzep-[id number] and heel mack testing within normal limits, negative Romberg, negative for drift, fundi benign. Hallpike maneuver was negative for nystagmus. Extremities-intact ?4, normal range of motion, normal pulses, atraumatic] Test Results: [Orthostatic vital signs were negative. Rapid strep screen was positive. Influenza screen was negative.] Emergency Department Course and Treatment: She was given amoxicillin 500 mg p.o.] Treatment Plan: [Advised to push fluids and will start on amoxicillin. Patient advised to follow-up with primary care physician in 5 to 7 days. Patient advised to return if difficulty swallowing on secretions or condition should worsen anyway.] Disposition: [Discharged home in stable condition] Impression: [Strep pharyngitis] This note was generated with [employer] software. It may contain incorrect words, spelling, and punctuation that were not noted in review of the chart prior to signing ED Disposition - Plan for ED Patient: Referrals: Fortunato Hardy MD [Primary Care Provider] -
--- NOTE | 2019-04-30 12:48 | ED.DEP ---
ED Disposition - Plan for ED Patient: Instructions: DIZZINESS, Unk Cause, PHARYNGITIS, Strep (Confirmed) Prescriptions: Amoxicillin 500 mg PO TID #30 tab Transmission Status: Pending to [id number] Referrals: Fortunato Hardy MD [Primary Care Provider] - 3-5 Days
[2019-04-30] MEDS: AMOXICILLIN 500 MG CAPSULE PO (13:05)
== END 2019-04-30 13:06 | disposition home or self-care (01) ==
LOC: ED 12:20
PROVIDERS: Emergency Provider Emergency Medicine; Family Provider Family Medicine; PCP Family Medicine
DX: J02.0 Streptococcal pharyngitis (principal); R42 Dizziness and giddiness
CPT/HCPCS: 87804; 87880; 99284

== ENCOUNTER 2019-05-13 15:54 | Emergency (ER) | payer MEDICAID, SELFPAY ==
[2019-05-13 15:56] VITALS: BP 152/77; PULSE 87; RESP 16; TEMP 35.8; O2SAT 100; BMI 27.9
--- NOTE | 2019-05-13 16:07 | ED.DCSUM_ITS ---
- ER Visit Summary Date of Service: 05/13/19 Chief Complaint: [Dental pain] History of Present Illness: The patient is a 28 F [presents to the emergency department with pain and swelling to left face that started 2 days ago. Patient denies any trauma. Patient states she woke up this way. She denies any f wesley. Patient states that she has some broken and carried teeth to the left lower jaw. Patient otherwise has history of asthma.] Physical Examination: [HEENT-PERRLA, EOMI. Cranial nerves II through XII grossly intact. TMs clear. Mucous membranes moist. No adenopathy. Dentition- patient has a broken and carried left lower premolar as well as left lower molar. The premolar is tender however the molar is not. There is no discrete gingival erythema or abscess noted. I do not appreciate any soft tissue swelling. There is no facial cellulitis. Cardiovascular-regular rate and rhythm without murmur or ectopy Lungs-clear to auscultation, chest wall stable without crepitus or subcu emphysema Abdomen-normoactive bowel sounds, soft, nontender, no rebound or rigidity, no peritoneal signs. Extremities-intact ?4, normal range of motion, normal pulses, atraumatic] Test Results: [None indicated] Emergency Department Course and Treatment: [He was given a dose of amoxicillin.] Treatment Plan: [We will be treated with amoxicillin as well as naproxen and a few [place] for severe pain. Patient will be given a dental list for follow-up.] Disposition: [Discharged home in stable condition] Impression: [Dental pain secondary to dental caries] This note was generated with [employer] dictation software. It may contain incorrect words, spelling, and punctuation that were not noted in review of the chart prior to signing ED Disposition - Plan for ED Patient: Referrals: Fortunato Hardy MD [Primary Care Provider] -
--- NOTE | 2019-05-13 16:09 | DCINST.ED_ITS ---
ED Disposition - Plan for ED Patient: Instructions: Dental Pain Prescriptions: Amoxicillin 500 mg PO TID #30 tab Transmission Status: Pending to [facility] Naproxen [Naprosyn] 500 mg PO BID PRN #20 tab Transmission Status: Pending to [facility] Hydrocodone Bitart/Apap 5-325 [[place] 5MG-325MG] 1 tablet PO Q4H PRN PRN 2 Days #10 tablet PRN Reason: Pain Transmission Status: Sent to [facility] Referrals: Fortunato Hardy MD [Primary Care Provider] - Additional Instructions: see your dentist
[2019-05-13] MEDS: AMOXICILLIN 500 MG CAPSULE PO (16:13)
== END 2019-05-13 16:16 | disposition home or self-care (01) ==
LOC: ED 16:14
PROVIDERS: Emergency Provider Emergency Medicine; PCP Family Medicine
DX: K02.9 Dental caries, unspecified (principal)
CPT/HCPCS: 99283

== ENCOUNTER 2019-06-18 12:52 | Emergency (ER) | payer MEDICAID, SELFPAY ==
[2019-06-18 12:53] VITALS: BP 125/77; PULSE 70; RESP 15; TEMP 36.8; O2SAT 98; BMI 27.8
[2019-06-18] MEDS: Ibuprofen 600 MG Tablet PO (15:19)
--- NOTE | 2019-06-18 15:29 | ED.DCSUM_ITS ---
History of Present Illness Chief Complaint: Numb/Ting Informant: Patient Onset: Days Context: Gradual Onset Timing: Continuous Narrative: Is a 28-year-old female presenting for evaluation of her right index finger. Patient cut her right index finger on the dorsal aspect over the PIP. Patient had stitches placed 2 days ago. She notes since then she has had paresthesias of her entire index finger. She was placed in a long finger splint and is having a hard time working at the [employer] because of this. She came in for further evaluation. She is having throbbing pain. She is not discharged with any medication for pain. She denies any other injuries or complaints at this time. She has decreased range of motion of the finger. Patient is right-hand dominant Past Medical History - Allergies and Home Meds Allergies/Adverse Reactions: Allergies hydrocodone [From Vicodin] Allergy (Verified 05/13/19 15:55) Hives latex Allergy (Verified 05/13/19 15:55) Hives Primary Care Physician: Fortunato Hardy MD [Primary Care Provider] - Past Medical History: None Surgical History: noncontributory Smoking Status: Current some day smoker Review of Systems General: Denies: Chills, Fever, Sweats Eyes: Denies: Visual changes - bilaterally, Diplopia ENT: Denies: Rhinorrhea, Sore throat Cardiovascular: Denies: Chest pain, Palpitations Respiratory: Denies: Dyspnea, Cough, Dyspnea on exertion Gastrointestinal: Denies: Abdominal pain, Nausea, Vomiting, Diarrhea Genitourinary: Denies: Dysuria, Hematuria, Frequency Musculoskeletal: Reports: Extremity Pain - Right index finger. Denies: Back pain Skin: Reports: Wounds - Right index finger, sutures in place. Denies: Rash Neurological: Reports: Parasthesia - Right index finger. Denies: Headache, Weakness, Numbness Physical Exam Vital Signs/Narrative: Vital Signs Temp Pulse Resp BP Pulse Ox 06/18/19 12:53 98.3 F 70 15 125/77 H 98 Inital Vital Signs reviewed: Yes General: Well nourished, Well developed, No Acute Distress Head: Normocephalic, Atraumatic Eyes: Perrl, EOMI ENT: Moist mucous membranes, No rhinorrhea Neck: Supple, Nontender Cardiovascular: Regular rate, Regular rhythm, No murmurs Respiratory: No distress, CTA bilaterally, Chest nontender Back: Nontender, Normal Inspection Extremities: No edema, Tenderness - Diffusely of the right index finger most pronounced over the PIP, - - Intact range of motion with flexion extension at all phalanges of the right index finger however range of motion is decreased secondary to pain. Soft tissue swelling diffusely of the right index finger Skin: Normal color, No rash, - Neurological: Alert, Oriented x3, Cranial nerves II-XII grossly intact, Normal Strength, Normal Sensation, - - Decreased sensation to sharp charge diffusely of the right index finger however patient does feel pain with range of motion Psychological: Normal affect, Normal Mood Diagnostic/Tx/Re-eval - Medical Decision Making Valuated for paresthesias and discomfort of her right index finger. She sustained a laceration 2 days ago that was sutured at an outside hospital. I was able to pull up the ER note from [place] emergency room. Patient did not have any signs of a tendinous injury at this time and had intact flexion and extension. Patient does have intact range of motion currently. I do not suspect extensor tendon injury. I suspect the paresthesias are more from the swelling associated with the injury as they also occur proximally to the wound. The wound itself does not look infected and appears to be healing appropriately. I did discuss the case with orthopedics on-call, Dr. Marcos who agrees with this. Patient is given a dose of Motrin in the emergency room. She be discharged home with a course of Motrin. She is placed in a short finger splint which I suspect will be more comfortable. Patient is counseled on signs and symptoms requiring return to the emergency room. Patient verbalizes agreement and understand this plan. Patient discharged home in stable and improved condition. ED Disposition - Plan for ED Patient: Disposition: Home or Assisted Living Diagnosis: Injury of right index finger, Visit for wound check Instructions: LACERATION, HAND with possible nerve injury (sutures, glue) Prescriptions: Ibuprofen [Motrin] 600 mg PO Q6H PRN PRN #20 tab PRN Reason: Pain/Inflammation Prescription Printed Referrals: Fortunato Hardy MD [Primary Care Provider] - Additional Instructions: Based on the documentation from the ER 2 days ago it does not appear that you had any injury to your tendons of your finger. The numbness you having is likely from the swelling. Take ibuprofen to help with the inflammation as well as the pain. We will place you in a short finger splint. If you start to feel better you can take the splint off. Follow-up for suture removal as previously instructed. Return the emergency room with any worsening symptoms.
== END 2019-06-18 15:55 | disposition home or self-care (01) ==
PROVIDERS: Emergency Provider Emergency Medicine; PCP Family Medicine
DX: S61.210A Laceration without foreign body of right index finger without damage to nail, initial encounter (principal); W45.8XXA Other foreign body or object entering through skin, initial encounter; Y93.9 Activity, unspecified; Y92.9 Unspecified place or not applicable; Z48.01 Encounter for change or removal of surgical wound dressing; F17.200 Nicotine dependence, unspecified, uncomplicated
CPT/HCPCS: 99284

== ENCOUNTER → 2019-11-14 11:47 | Outpatient (CLI) | payer MEDICAID, SELFPAY ==
[2019-10-22 14:06] VITALS: BMI 27.8
--- NOTE | 2019-11-14 11:49 | US_ITS ---
STUDY: ULTRASOUND OF THE FEMALE PELVIS - COMPLETE REASON FOR EXAM: Female, 29 years old. IRREGULAR MENSES WITH HEAVY BLEEDING LMP: Unknown. TECHNIQUE: Transabdominal and Transvaginal TECHNICAL QUALITY: Adequate. COMPARISON: None. FINDINGS: The uterus is retroflexed and is in a midline position. The uterus measures 9.6 x 5.0 x 3.6 cm. Normal uterine cervix. The endometrium measures 3 mm in thickness, and is hyperechoic. There is no demonstrated endometrial mass. There is no demonstrated myometrial mass. I.U.D. - The patient does not have an I.U.D. The right ovary is visualized. The right ovary measures 2.8 x 2.0 x 1.3 cm. There is no right ovarian cyst or ovarian mass. There is no visualized right adnexal mass or complex lesion. There is normal arterial and normal venous vascularity. The left ovary is visualized. The left ovary measures 3.0 x 2.0 x 1.7 cm. There is no left ovarian cyst or ovarian mass. There is no visualized left adnexal mass or complex lesion. There is normal arterial and normal venous vascularity. There is no fluid in the cul-de-sac. The pre void volume of the bladder was 60.3 ml. The bladder is sonographically normal US/Transvaginal Non- IMPRESSION: No suspicious sonographic findings Electronically Signed: Tyrone Castro MD at 13:00 EDT , Service support ,
--- NOTE | 2019-11-14 11:49 | US_ITS ---
STUDY: ULTRASOUND OF THE FEMALE PELVIS - COMPLETE REASON FOR EXAM: Female, 29 years old. IRREGULAR MENSES WITH HEAVY BLEEDING LMP: Unknown. TECHNIQUE: Transabdominal and Transvaginal TECHNICAL QUALITY: Adequate. COMPARISON: None. FINDINGS: The uterus is retroflexed and is in a midline position. The uterus measures 9.6 x 5.0 x 3.6 cm. Normal uterine cervix. The endometrium measures 3 mm in thickness, and is hyperechoic. There is no demonstrated endometrial mass. There is no demonstrated myometrial mass. I.U.D. - The patient does not have an I.U.D. The right ovary is visualized. The right ovary measures 2.8 x 2.0 x 1.3 cm. There is no right ovarian cyst or ovarian mass. There is no visualized right adnexal mass or complex lesion. There is normal arterial and normal venous vascularity. The left ovary is visualized. The left ovary measures 3.0 x 2.0 x 1.7 cm. There is no left ovarian cyst or ovarian mass. There is no visualized left adnexal mass or complex lesion. There is normal arterial and normal venous vascularity. There is no fluid in the cul-de-sac. The pre void volume of the bladder was 60.3 ml. The bladder is sonographically normal US/Pelvic (Non ) IMPRESSION: No suspicious sonographic findings Electronically Signed: Tyrone Castro MD at 13:00 EDT , Service support ,
== END ==
PROVIDERS: PCP Family Medicine; Referring Provider Nurse Practitioner Women's Health; Visit Provider Nurse Practitioner Women's Health
DX: N92.1 Excessive and frequent menstruation with irregular cycle (principal)
CPT/HCPCS: 76830; 76856

== ENCOUNTER 2020-01-29 08:52 | Emergency (ER) | payer MEDICAID, SELFPAY ==
[2019-10-22 14:06] VITALS: BMI 27.8
[2020-01-29 08:53] VITALS: BP 134/83; PULSE 60; RESP 14; TEMP 36.4; O2SAT 100; BMI 34.2
[2020-01-29 09:00] VITALS: BP 134/83; PULSE 60; RESP 14; TEMP 36.4; O2SAT 100
--- NOTE | 2020-01-29 09:00 | EKG12_ITS ---
Test Reason : SOB/CP Blood Pressure : / mmHG Vent. Rate : 064 BPM Atrial Rate : 064 BPM P-R Int : 136 ms QRS Dur : 090 ms QT Int : 416 ms P-R-T Axes : 038 057 042 degrees QTc Int : 429 ms Normal sinus rhythm Normal ECG Confirmed by PATO ONEAL, RASTA ([id number]), tape editor KLARISSA MEHTA ([id number]) on 02/04/2020 10:56:24 AM Referred By: STEWART Confirmed By:FREEMAN WHYTE MD
--- NOTE | 2020-01-29 09:41 | ED.DCSUM_ITS ---
History of Present Illness Chief Complaint: Shortness of Breath Informant: Patient Narrative: 29-year-old female presenting with chest tightness which started about 5 AM upon awakening. She has no history of this. Denies any trauma. She denies cardiac history but states she has a history of asthma. She did use her inhaler this morning. She states it did not help. She has no history of DVT/PE denies recent travel, immobilization, exogenous hormones, history of cancer. Denies fever, chills, cough, myalgias, loss of taste or smell. She states she was otherwise healthy prior to going to bed last evening. She states she worked for 4 hours and the pain seemed to be getting worse. She states the pain is reproducible to touch in the center of her chest. Past Medical History - Allergies and Home Meds Allergies/Adverse Reactions: Allergies hydrocodone [From Vicodin] Allergy (Verified 01/29/20 08:55) Hives latex Allergy (Verified 01/29/20 08:55) Hives Primary Care Physician: Fortunato Hardy MD [Primary Care Provider] - Past Medical History: - - Asthma Surgical History: noncontributory Lives: Alone Smoking Status: Current some day smoker Alcohol: None Drugs: None Review of Systems General: Denies: Chills, Fever, Sweats Eyes: Denies: Visual changes - bilaterally, Diplopia ENT: Denies: Rhinorrhea, Sore throat Cardiovascular: Reports: Chest pain. Denies: Palpitations, Heart racing Respiratory: Denies: Dyspnea, Cough, Sputum Gastrointestinal: Denies: Abdominal pain, Nausea, Vomiting Genitourinary: Denies: Dysuria, Hematuria, Frequency Musculoskeletal: Denies: Back pain, Extremity Pain Skin: Denies: Rash, Wounds Neurological: Denies: Headache, Weakness, Numbness Psych: Denies: Depression, Anxiety Physical Exam Vital Signs/Narrative: Vital Signs Temp Pulse Resp BP Pulse Ox 01/29/20 09:00 97.6 F L 60 14 134/83 H 100 01/29/20 08:53 97.6 F L 60 14 134/83 H 100 Inital Vital Signs reviewed: Yes General: Well nourished, No Acute Distress, - - Resting comfortably playing on her phone Head: Normocephalic, Atraumatic Eyes: Perrl, EOMI ENT: Moist mucous membranes, No rhinorrhea Cardiovascular: Regular rate, Regular rhythm, No murmurs Respiratory: No distress, CTA bilaterally, - - Tenderness to palpation over the mid sternum. No ecchymosis, crepitance. Extremities: Nontender, No edema Skin: Normal color, No rash Neurological: Alert, Oriented x3 Psychological: Normal affect, Normal Mood Diagnostic/Tx/Re-eval Clinical Impression(s) from Imaging Studies Chest X-Ray 01/29/20 11:35 IMPRESSION: Ill-defined airspace opacities seen in the left lung lower lobe suggesting pneumonia. Electronically Signed: Candie Caceres, at 11:59 EDT Tel , Service support , Laboratory Data 01/29/20 01/29/20 11:02 11:02 WBC 8.3 RBC 3.81 L Hgb 10.5 L Hct 35.0 L MCV 91.9 MCH 27.6 MCHC 30.0 L RDW Std Deviation 48.8 H RDW Coeff of Ritika 14.5 Plt Count 290 MPV 10.1 Immature Gran % (Auto) 0.400 Neut % (Auto) 67.9 Lymph % (Auto) 24.9 [place] % (Auto) 5.2 Eos % (Auto) 1.2 Baso % (Auto) 0.4 Absolute Neuts (auto) 5.7 Absolute Lymphs (auto) 2.07 Nucleated RBC % 0 Sodium 142 Potassium 4.5 Chloride 110 H Carbon Dioxide 27.0 Anion Gap 5 BUN 10 Creatinine 0.71 Estim Creat Clear Calc 83.98 Est GFR (MDRD) Af Amer 124 Est GFR (MDRD) Non-Af 103 BUN/Creatinine Ratio 14.0 Glucose 94 Calcium 8.8 Troponin I < 0.015 - Rhythm Strip Rhythm Strip: Sinus Rhythm Rate: 64 - EKG Initial EKG Interpretation: Sinus Rhythm, No Acute Injury Pattern - Medical Decision Making Presents with sternal pain which is reproducible. This started this morning. She has no shortness of breath, cough, fever, taste and smell changes. She has no cardiac history. She is PERC negative. EKG is sinus rhythm without signs of ischemia. Chest x-ray shows concern for slight infiltrate in the left lower lobe. Patient's lab work is unremarkable. It is not consistent with COVID?19 nor is it consistent with bacterial pneumonia. She states that she does tend to get a pneumonia after having strep throat at times. She has no signs or symptoms of strep throat however. I do believe that her symptoms are more consistent with a costochondritis since it is reproducible and hurts to take a deep breath. Given that she has this abnormal read on x-ray I will give her a prescription for Z-Lit. She is amenable to this plan. Patient stable for discharge. Impression: 1. Community-acquired pneumonia 2. Chest pain noncardiac ED Disposition - Plan for ED Patient: Disposition: Home or Assisted Living Instructions: Pneumonia, ED CHEST PAIN [place] Prescriptions: Azithromycin [Zithromax Z-Lit] 250 mg PO UD #1 box Transmission Status: Received by [facility] Referrals: Fortunato Hardy MD [Primary Care Provider] -
[2020-01-29 11:09] LABS: Absolute Lymphocyte Count 2.07 X10^3/uL (0.83-4.51); Absolute Neutrophil Count 5.7 X10^3/uL (2.0-7.7); Basophil# 0.03 X10^3/uL; Basophil% 0.4 % (0-1); Eosinophils% 1.2 % (0-5); Hemoglobin 10.5 g/dL (12.0-15.0); Lymphocyte # 2.07 X10^3/ul (4.0); Lymphocyte % 24.9 % (19-41); Mean Corpuscular Hgb 27.6 pg (27.0-32.0); Mean Corpuscular Volume 91.9 fL (81-99); Mean Platelet Vol. 10.1 fl (6.2-12.0); Monocyte# 0.43 X10^3/uL; Monocyte% 5.2 % (0-10); NRBC Flagged by Analyzer 0 % (0-5); Neutrophil # 5.65 X10^3/uL (2.7-7.7); Neutrophil % 67.9 % (47-70); Platelet Count 290 K/mm3 (150-450); RBC Distribution Width CV 14.5 % (11.6-14.6); RBC Distribution Width SD 48.8 fl (35.1-43.9); Red Blood Count 3.81 M/mm3 (4.2-5.4); White Blood Count 8.3 K/mm3 (4.4-11.0)
[2020-01-29] MEDS: Aspirin 81 MG TAB.CHEW 324 MG PO (11:23)
[2020-01-29 11:27] LABS: Anion Gap 5 (5-15); BUN 10 mg/dL (7-18); Calcium,Total 8.8 mg/dL (8.5-10.1); Chloride 110 mmol/L (98-107); Creatinine, Serum 0.71 mg/dL (0.55-1.02); EST Glomerular Filtration Rate 103 mL/min (>60); Est Glom Filt Rate - Afr Amer 124 mL/min (>60); Estimated Creatinine Clearance 83.98 ml/min; Glucose 94 mg/dL (74-106); Potassium 4.5 mmol/L (3.5-5.1); Sodium Level 142 mmol/L (136-145)
[2020-01-29 11:34] VITALS: BP 116/72; PULSE 62; RESP 18; O2SAT 100; O2SAT 97
--- NOTE | 2020-01-29 11:35 | RAD_ITS ---
STUDY: X-RAY CHEST REASON FOR EXAM: Female, 29 years old. chest pain TECHNIQUE: Single AP portable view of the chest. COMPARISON: None. FINDINGS: The lungs are underexpanded. Ill-defined airspace opacities seen in the left lung lower lobe suggesting pneumonia.There is no demonstrated pleural abnormality. Normal size heart. Normal mediastinum and aminta. Normal visualized pulmonary arteries. Normal visualized aortic arch and descending thoracic aorta. Normal visualized thoracic spine. Normal visualized ribs, clavicles, and shoulders. There is no demonstrated abnormality of the visualized soft tissue structures of the upper abdomen. RAD/Chest 1 View (Portable) IMPRESSION: Ill-defined airspace opacities seen in the left lung lower lobe suggesting pneumonia. Electronically Signed: Candie Caceres, at 11:59 EDT Tel , Service support ,
[2020-01-29 13:04] VITALS: BP 118/68; PULSE 74; RESP 16; O2SAT 99
== END 2020-01-29 13:05 | disposition home or self-care (01) ==
PROVIDERS: Emergency Provider Student in an Organized Health Care Education/Training Program; PCP Family Medicine
DX: J18.9 Pneumonia, unspecified organism (principal); R07.89 Other chest pain
CPT/HCPCS: 71045; 80048; 84484; 85025; 93005; 99285

== ENCOUNTER 2020-06-04 10:09 | Emergency (ER) | payer MEDICAID, SELFPAY ==
[2020-06-04 10:10] VITALS: BP 107/74; PULSE 83; RESP 16; TEMP 36.6; O2SAT 100; BMI 25.5
--- NOTE | 2020-06-04 10:26 | CT_ITS ---
STUDY: CT ABDOMEN AND PELVIS WITHOUT CONTRAST REASON FOR EXAM: Female, 29 years old. DIFFUSE AB PAIN. APPY AND TUBAL RADIATION DOSAGE (If Supplied By Facility): CTDIvol = ( 6.49 ) mGy, DLP = ( 338.97 ) mGycm TECHNIQUE: Transaxial images were obtained from the dome of the diaphragm to the symphysis pubis without oral contrast, and without intravenous contrast. Sagittal and coronal images were reconstructed. Individualized dose optimization techniques were used for this CT. COMPARISON: Comparison is made with prior study dated 06/21/2018. FINDINGS: The visualized lung bases are unremarkable. The visualized portions of the heart are within normal limits. Normal liver. Normal gallbladder and extrahepatic biliary system. Normal spleen. Normal pancreas. Normal bilateral adrenal glands. Normal right kidney. Normal left kidney. There is a small hiatal hernia. Normal small intestine. Normal colon. The patient is status post appendectomy. Normal abdominal aorta. Normal inferior vena cava. Normal retroperitoneum. Normal urinary bladder. Normal abdominal wall. Normal osseous structures. CT/Abdomen/Pelvis without Cont IMPRESSION: Normal unenhanced CT of the abdomen and pelvis. Electronically Signed: Miguel Angel Miller MD at 12:24 EST , Service support ,
[2020-06-04] MEDS: 0.9% Normal Saline 1,000 ML 250 ML IV (10:49)
[2020-06-04] MEDS: Ketorolac 15 MG/ML Vial IV (10:50)
[2020-06-04 11:01] LABS: Absolute Lymphocyte Count 1.82 X10^3/uL (0.83-4.51); Absolute Neutrophil Count 4.7 X10^3/uL (2.0-7.7); Basophil# 0.03 X10^3/uL; Basophil% 0.4 % (0-1); Eosinophil# 0.13 X10^3/uL; Eosinophils% 1.8 % (0-5); Hematocrit 36.4 % (37-47); Lymphocyte # 1.82 X10^3/ul (4.0); Lymphocyte % 25.3 % (19-41); Mean Corp Hgb Conc 30.2 g/dL (32-36); Mean Corpuscular Hgb 28.3 pg (27.0-32.0); Mean Corpuscular Volume 93.6 fL (81-99); Monocyte# 0.52 X10^3/uL; Monocyte% 7.2 % (0-10); NRBC Flagged by Analyzer 0 % (0-5); Neutrophil # 4.68 X10^3/uL (2.7-7.7); Platelet Count 269 K/mm3 (150-450); RBC Distribution Width CV 13.7 % (11.6-14.6); RBC Distribution Width SD 47.1 fl (35.1-43.9); Red Blood Count 3.89 M/mm3 (4.2-5.4); White Blood Count 7.2 K/mm3 (4.4-11.0)
[2020-06-04 11:02] LABS: Color, Urine Yellow (Yellow); Glucose, Dipstick Normal (Normal); Ketone-Dipstick 5 mg/dl (Negative); Leukocyte Esterase-Dipstick 25 /ul (Negative); Nitrite-Dipstick Negative (Negative); Occult Blood-Urine 25 /ul (Negative); Protein-Dipstick 30 mg/dl (Negative); Specific Gravity, Urine 1.025 (1.002-1.030); Urine Bilirubin Dipstick Negative (Negative); Urine Clarity Sl. Cloudy (Clear); Urine Urobilinogen 1 mg/dl (Normal)
[2020-06-04 11:08] LABS: Bacteria 2+ /hpf (None Seen); Mucous, Urine 2+ /hpf (<or=2+); Red Blood Cells-Urine 0-5 SEEN /hpf (0-5); Squamous Epithelial Cells - UA 5-10 SEEN /hpf (5-10); White Blood Cells 0-5 SEEN /hpf (0-5)
[2020-06-04 11:09] LABS: Internal QC Validated? YES +Cl - CLEAR BKGD; Pregnancy, Serum, hCG Quali. NEGATIVE Negative
[2020-06-04 11:12] LABS: Anion Gap 1 (5-15); BUN 9 mg/dL (7-18); BUN/Creat Ratio 12.1 RATIO (10-20); Calcium,Total 8.6 mg/dL (8.5-10.1); Chloride 108 mmol/L (98-107); Creatinine, Serum 0.74 mg/dL (0.55-1.02); EST Glomerular Filtration Rate 97 mL/min (>60); Est Glom Filt Rate - Afr Amer 118 mL/min (>60); Estimated Creatinine Clearance 109.08 ml/min; Glucose 95 mg/dL (74-106); Potassium 3.8 mmol/L (3.5-5.1); Sodium Level 139 mmol/L (136-145)
--- NOTE | 2020-06-04 12:51 | ED.VIS.GEN ---
History of Present Illness Chief Complaint: Abd Pain Narrative: Patient presenting for evaluation secondary to flank pain. Patient reports that over the course about the last week she has been dealing with diffuse flank pain. Patient states that it will come and go paroxysmally. It does not really have any sort of exacerbating relieving factors. Is also been associated with some suprapubic pain. She denies any fevers nausea vomiting diarrhea dysuria hematuria. Patient states that when it started a week ago she went to the urgent care was told that she had some blood in her urine and likely had a kidney stone, but was not prescribed any sort of intervention and did not have any sort of imaging. She said persistent symptoms throughout the course of the week. She denies any vaginal discharge or bleeding. Review of systems otherwise negative. Patient denies the possibility of . Past Medical History - Allergies and Home Meds Allergies/Adverse Reactions: Allergies hydrocodone [From Vicodin] Allergy (Verified 06/04/20 10:10) Hives latex Allergy (Verified 06/04/20 10:10) Hives Primary Care Physician: Fortunato Hardy MD [Primary Care Provider] - Prior records reviewed: Yes Past Medical History: None Surgical History: noncontributory Smoking Status: Former smoker Alcohol: None Drugs: None Review of Systems All systems negative except as indicated General: Denies: Chills, Fever, Sweats Eyes: Denies: Visual changes - bilaterally, Diplopia ENT: Denies: Rhinorrhea, Sore throat Cardiovascular: Denies: Chest pain, Palpitations Respiratory: Denies: Dyspnea, Cough, Dyspnea on exertion Gastrointestinal: Denies: Abdominal pain, Nausea, Vomiting, Diarrhea, Melena, Hematochezia Genitourinary: Reports: - - Flank pain Musculoskeletal: Denies: Back pain, Extremity Pain Skin: Denies: Rash, Wounds Neurological: Denies: Headache, Weakness, Numbness Physical Exam Vital Signs/Narrative: Vital Signs Temp Pulse Resp BP Pulse Ox 06/04/20 10:10 97.9 F 83 16 107/74 100 Inital Vital Signs reviewed: Yes General: Well nourished, Well developed, No Acute Distress Head: Normocephalic, Atraumatic Eyes: Perrl, EOMI ENT: Moist mucous membranes, No rhinorrhea Neck: Supple, Nontender Cardiovascular: Regular rate, Regular rhythm, No murmurs Respiratory: No distress, CTA bilaterally, Chest nontender Abdomen: Soft, Nondistended, Normal bowel sounds, Tender - Minimal suprapubic tenderness. No evidence of CVA tenderness to percussion. No overlying vesicular rash. Back: Nontender, Normal Inspection Extremities: Nontender, No edema Skin: Normal color, No rash Neurological: Alert, Oriented x3, Cranial nerves II-XII grossly intact, Normal Strength, Normal Sensation Psychological: Normal affect, Normal Mood Diagnostic/Tx/Re-eval Clinical Impression(s) from Imaging Studies Abdomen/Pelvis CT 06/04/20 10:26 IMPRESSION: Normal unenhanced CT of the abdomen and pelvis. Electronically Signed: Miguel Angel Miller MD at 12:24 EST , Service support , Laboratory Data 06/04/20 06/04/20 06/04/20 10:45 10:50 10:50 WBC 7.2 RBC 3.89 L Hgb 11.0 L Hct 36.4 L MCV 93.6 MCH 28.3 MCHC 30.2 L RDW Std Deviation 47.1 H RDW Coeff of Ritika 13.7 Plt Count 269 MPV 10.0 Immature Gran % (Auto) 0.300 Neut % (Auto) 65.0 Lymph % (Auto) 25.3 [place] % (Auto) 7.2 Eos % (Auto) 1.8 Baso % (Auto) 0.4 Absolute Neuts (auto) 4.7 Absolute Lymphs (auto) 1.82 Nucleated RBC % 0 Sodium 139 Potassium 3.8 Chloride 108 H Carbon Dioxide 30.0 Anion Gap 1 L BUN 9 Creatinine 0.74 Estim Creat Clear Calc 109.08 Est GFR (MDRD) Af Amer 118 Est GFR (MDRD) Non-Af 97 BUN/Creatinine Ratio 12.1 Glucose 95 Calcium 8.6 Serum , Qual Urine Color Yellow Urine Clarity Sl. Cloudy Urine pH 5.0 Ur Specific [place] 1.025 Urine Protein 30 H Urine Glucose (UA) Normal Urine Ketones 5 H Urine Occult Blood 25 H Urine Nitrite Negative Urine Bilirubin Negative Urine Urobilinogen 1 H Ur Leukocyte Esterase 25 H Urine RBC 0-5 SEEN Urine WBC 0-5 SEEN Ur Squamous Epith Cells 5-10 SEEN Urine Bacteria 2+ Urine Mucus 2+ 06/04/20 10:50 WBC RBC Hgb Hct MCV MCH MCHC RDW Std Deviation RDW Coeff of Ritika Plt Count MPV Immature Gran % (Auto) Neut % (Auto) Lymph % (Auto) [place] % (Auto) Eos % (Auto) Baso % (Auto) Absolute Neuts (auto) Absolute Lymphs (auto) Nucleated RBC % Sodium Potassium Chloride Carbon Dioxide Anion Gap BUN Creatinine Estim Creat Clear Calc Est GFR (MDRD) Af Amer Est GFR (MDRD) Non-Af BUN/Creatinine Ratio Glucose Calcium Serum , Qual NEGATIVE Urine Color Urine Clarity Urine pH Ur Specific [place] Urine Protein Urine Glucose (UA) Urine Ketones Urine Occult Blood Urine Nitrite Urine Bilirubin Urine Urobilinogen Ur Leukocyte Esterase Urine RBC Urine WBC Ur Squamous Epith Cells Urine Bacteria Urine Mucus - Medical Decision Making Patient presented secondary to flank pain. She was given Toradol in the emergency department. Urinalysis does not show significant white blood cells, but does show 2+ bacteria. CBC and chemistry unremarkable. CT abdomen and pelvis was performed shows no evidence of stone disease. Patient's symptoms potentially are associated with an element of pyelonephritis although the patient does not appear to be in extremis with a high white count sepsis or hypotension. Patient be treated with a course of Bactrim. She was recommended continued [id number] management of her pain. Follow-up with primary care. ED Disposition - Plan for ED Patient: Disposition: Home or Assisted Living Diagnosis: Urinary tract infection Instructions: ED Bladder Infection, Female (Adult) Prescriptions: Smz/Tmp Ds [Bactrim Ds] 1 tab PO BID #14 tab Prescription Printed Referrals: Fortunato Hardy MD [Primary Care Provider] - 5-7 Days
[2020-06-04 13:50] VITALS: BP 123/67; PULSE 70; RESP 16; O2SAT 100
--- NOTE | 2020-06-04 13:50 | ED.RN ---
IV DC'ED, CATHETER INTACT, SMALL GAUZE DRESSING PLACED. DISCHARGE INSTRUCTIONS GIVEN TO AND REVIEWED WITH PATIENT, PATIENT DENIES QUESTIONS OR CONCERNS AND VOICES UNDERSTANDING OF DISCHARGE INSTRUCTIONS. PT AMBULATES OUT OF ROOM WITHOUT DIFFICULTY.
== END 2020-06-04 13:51 | disposition home or self-care (01) ==
PROVIDERS: Emergency Provider Emergency Medicine; PCP Family Medicine
DX: N39.0 Urinary tract infection, site not specified (principal); Z87.891 Personal history of nicotine dependence
CPT/HCPCS: 74176; 80048; 81001; 84703; 85025; 96361; 96374; 99283; J7030

== ENCOUNTER 2020-08-11 20:56 | Emergency (ER) | payer MEDICAID, SELFPAY ==
[2020-08-11 20:57] VITALS: BP 127/83; PULSE 70; RESP 18; TEMP 36.1; O2SAT 98; BMI 25.7
--- NOTE | 2020-08-11 21:38 | US_ITS ---
STUDY: VENOUS DOPPLER ULTRASOUND - RIGHT LOWER EXTREMITY REASON FOR EXAM: Female, 29 years old. ANTERIOR RT THIGH LUMP AND ALL OVER LEG PAIN TECHNIQUE: Ultrasound evaluation of the deep vein system to include banuelos-scale imaging and compression was performed. Banuelos-scale imaging and Doppler sonographic evaluation, including duplex spectral analysis and qualitative color flow sonography, was performed. COMPARISON: None. FINDINGS: Common Femoral Vein: Normal compression, spontaneity and augmentation. Normal color Doppler. Common Femoral Vein/Greater Saphenous Junction: Normal compression, spontaneity and augmentation. Normal color Doppler. Deep Femoral Vein: Normal compression, spontaneity and augmentation. Normal color Doppler. Femoral Proximal: Normal compression, spontaneity and augmentation. Normal color Doppler. Femoral Middle: Normal compression, spontaneity and augmentation. Normal color Doppler. Femoral Distal: Normal compression, spontaneity and augmentation. Normal color Doppler. Popliteal Vein: Normal compression, spontaneity and augmentation. Normal color Doppler. Posterior Tibial Vein: Normal compression, spontaneity and augmentation. Normal color Doppler. Peroneal Vein: Normal compression, spontaneity and augmentation. Normal color Doppler. US/Venous Duplex Imag/Limited/Uni IMPRESSION: Normal venous Doppler ultrasound of the lower extremity. Electronically Signed: Torey Driver DO at 22:20 EDT Tel , Service support ,
[2020-08-11 22:29] LABS: Absolute Lymphocyte Count 2.86 X10^3/uL (0.83-4.51); Absolute Neutrophil Count 4.9 X10^3/uL (2.0-7.7); Basophil# 0.05 X10^3/uL; Basophil% 0.6 % (0-1); Eosinophil# 0.37 X10^3/uL; Eosinophils% 4.2 % (0-5); Hematocrit 37.8 % (37-47); Hemoglobin 11.7 g/dL (12.0-15.0); Lymphocyte # 2.86 X10^3/ul (0.83-4.51); Lymphocyte % 32.5 % (19-41); Mean Corpuscular Hgb 29.1 pg (27.0-32.0); Monocyte# 0.57 X10^3/uL; Monocyte% 6.5 % (0-10); NRBC Flagged by Analyzer 0 % (0-5); Neutrophil # 4.92 X10^3/uL (2.7-7.7); Platelet Count 276 K/mm3 (150-450); RBC Distribution Width CV 12.8 % (11.6-14.6); RBC Distribution Width SD 44.5 fl (35.1-43.9); Red Blood Count 4.02 M/mm3 (4.2-5.4); White Blood Count 8.8 K/mm3 (4.4-11.0)
[2020-08-11 22:46] LABS: Anion Gap 4 (5-15); BUN 13 mg/dL (7-18); BUN/Creat Ratio 15.2 RATIO (10-20); CPK Total, Creatine Kinase 53 U/L (26-192); Calcium,Total 9.2 mg/dL (8.5-10.1); Chloride 110 mmol/L (98-107); Creatinine, Serum 0.86 mg/dL (0.55-1.02); EST Glomerular Filtration Rate 83 mL/min (>60); Est Glom Filt Rate - Afr Amer 100 mL/min (>60); Estimated Creatinine Clearance 90.36 ml/min; Glucose 112 mg/dL (74-106); Potassium 3.6 mmol/L (3.5-5.1); Sodium Level 142 mmol/L (136-145)
--- NOTE | 2020-08-11 23:37 | ED.DCSUM_ITS ---
History of Present Illness Chief Complaint: Lower Extremity Injury Narrative: Patient presenting for evaluation secondary to right leg pain. Patient reports that over the course about the last 3 days she has had an onset of right leg pain. Patient states that it initially started off with her anterior thigh, now it is basically the entirety of her upper thigh both anterior and posterior. Worse with palpation and movement. She denies any numbness or weakness. She denies any fevers chills night sweats unintended weight loss. Patient denies any recent surgeries injections or history of IV drug abuse. Patient also denies any recent travel or surgery, history of DVT or PE, or any hemoptysis associated with this. Patient is never really had any prior similar episodes in the past. Patient denies that she has had any recent increased physical activity. Review of systems otherwise negative. Past Medical History - Allergies and Home Meds Allergies/Adverse Reactions: Allergies hydrocodone [From Vicodin] Allergy (Verified 08/11/20 20:59) Hives latex Allergy (Verified 08/11/20 20:59) Hives Primary Care Physician: Fortunato Hardy MD [Primary Care Provider] - Prior records reviewed: Yes Past Medical History: None Surgical History: noncontributory Smoking Status: Current every day smoker Alcohol: None Drugs: None Review of Systems All systems negative except as indicated General: Denies: Chills, Fever, Sweats Eyes: Denies: Visual changes - bilaterally, Diplopia ENT: Denies: Rhinorrhea, Sore throat Cardiovascular: Denies: Chest pain, Palpitations Respiratory: Denies: Dyspnea, Cough, Dyspnea on exertion Gastrointestinal: Denies: Abdominal pain, Nausea, Vomiting, Diarrhea, Melena, Hematochezia Genitourinary: Denies: Dysuria, Hematuria, Frequency Musculoskeletal: Reports: Extremity Pain Skin: Denies: Rash, Wounds Neurological: Denies: Headache, Weakness, Numbness Physical Exam Vital Signs/Narrative: Vital Signs Temp Pulse Resp BP Pulse Ox 08/11/20 20:57 96.9 F L 70 18 127/83 H 98 Inital Vital Signs reviewed: Yes General: Well nourished, Well developed, No Acute Distress Head: Normocephalic, Atraumatic Eyes: Perrl, EOMI ENT: Moist mucous membranes, No rhinorrhea Neck: Supple, Nontender Cardiovascular: Regular rate, Regular rhythm, No murmurs Respiratory: No distress, CTA bilaterally, Chest nontender Abdomen: Soft, Nontender, Nondistended, Normal bowel sounds Back: Nontender, Normal Inspection Extremities: No edema, - - Examination the patient's right leg shows diffuse tenderness palpation of the anterior and posterior thigh. There are no palpable masses, no palpable cord. Compartments are soft throughout. There is no evidence of overlying skin changes. There is normal proximal and distal pulses. . Negative for: Edema Skin: Normal color, No rash Neurological: Alert, Oriented x3, Cranial nerves II-XII grossly intact, Normal Strength, Normal Sensation Psychological: Normal affect, Normal Mood Diagnostic/Tx/Re-eval Clinical Impression(s) from Imaging Studies Venous Duplex 08/11/20 21:38 IMPRESSION: Normal venous Doppler ultrasound of the lower extremity. Electronically Signed: Torey Driver DO at 22:20 EDT Tel , Service support , Laboratory Data 08/11/20 08/11/20 22:24 22:24 WBC 8.8 RBC 4.02 L Hgb 11.7 L Hct 37.8 MCV 94.0 MCH 29.1 MCHC 31.0 L RDW Std Deviation 44.5 H RDW Coeff of Ritika 12.8 Plt Count 276 MPV 10.0 Immature Gran % (Auto) 0.200 Neut % (Auto) 56.0 Lymph % (Auto) 32.5 [place] % (Auto) 6.5 Eos % (Auto) 4.2 Baso % (Auto) 0.6 Absolute Neuts (auto) 4.9 Absolute Lymphs (auto) 2.86 Nucleated RBC % 0 Sodium 142 Potassium 3.6 Chloride 110 H Carbon Dioxide 28.0 Anion Gap 4 L BUN 13 Creatinine 0.86 Estim Creat Clear Calc 90.36 Est GFR (MDRD) Af Amer 100 Est GFR (MDRD) Non-Af 83 BUN/Creatinine Ratio 15.2 Glucose 112 H Calcium 9.2 Total Creatine Kinase 53 - Medical Decision Making Patient presented secondary to right thigh pain. Duplex ultrasound was obtained was found to be negative. CBC shows no signs of anemia or infection, chemistry unremarkable CK found to be unremarkable. It seems unlikely the patient has a presentation of myositis, deep space infection, compartment syndrome, she has normal pulses of not concern for a low flow state does not have a DVT she does not have any overlying skin changes and she does not have any back pain that would make me think that this is radicular in cause. Most likely cause at this point is that the patient has muscular pain, do not have a specific reason why but she has stable vital signs and otherwise negative reassuring work-up and I believe that she safely can be discharged with outpatient follow-up. Patient was educated on signs and symptoms which to return and the importance of follow- up patient was discharged in stable condition. ED Disposition - Plan for ED Patient: Disposition: Home or Assisted Living Diagnosis: Myalgia Instructions: ED Myalgias Referrals: Fortunato Hardy MD [Primary Care Provider] - 3-5 Days
[2020-08-11 23:44] VITALS: BP 129/58; PULSE 69; RESP 15; O2SAT 98
== END 2020-08-11 23:45 | disposition home or self-care (01) ==
PROVIDERS: Emergency Provider Emergency Medicine; PCP Family Medicine
DX: M79.651 Pain in right thigh (principal); F17.200 Nicotine dependence, unspecified, uncomplicated
CPT/HCPCS: 80048; 82550; 85025; 93971; 99285; A4216

== ENCOUNTER 2020-09-02 19:38 | Emergency (ER) | payer MEDICAID, SELFPAY ==
[2020-08-17 09:40] VITALS: BMI 25.7
[2020-09-02 19:39] VITALS: BP 114/69; PULSE 81; RESP 16; TEMP 36.2; O2SAT 100; BMI 25.4
[2020-09-02 19:56] LABS: Mucous, Urine 0 SEEN /hpf (<or=2+)
[2020-09-02 19:57] LABS: Color, Urine Yellow (Yellow); Glucose, Dipstick 100 mg/dl (Normal); Ketone-Dipstick Negative (Negative); Leukocyte Esterase-Dipstick 500 /ul (Negative); Nitrite-Dipstick Negative (Negative); Occult Blood-Urine 150 /ul (Negative); Protein-Dipstick 30 mg/dl (Negative); Urine Bilirubin Dipstick Negative (Negative); Urine Clarity Sl. Cloudy (Clear); Urine Urobilinogen 1 mg/dl (Normal)
[2020-09-02 20:21] LABS: Bacteria RARE /hpf (None Seen); Squamous Epithelial Cells - UA 0-5 SEEN /hpf (5-10); White Blood Cells 25-50 SEEN /hpf (0-5)
[2020-09-02 20:22] LABS: Red Blood Cells-Urine 0-5 SEEN /hpf (0-5)
--- NOTE | 2020-09-02 20:27 | CT_ITS ---
HISTORY: Right flank pain ADDITIONAL HISTORY: None provided. EXAMINATION/TECHNIQUE: CT Abdomen And Pelvis W/O Contrast Injection Enteric contrast was not given. Number of images including paperwork: [id number]. A radiation dose optimization technique was used for this scan. COMPARISON: 06/04/2020 FINDINGS: Evaluation of the abdominopelvic organs is limited in the absence of contrast. LOWER THORAX: No consolidation or pleural effusion. Dependent atelectasis. LIVER: No concerning focal lesion. GALLBLADDER: No radiopaque calculi. BILE DUCTS: No significant biliary dilatation. SPLEEN: Unremarkable. PANCREAS: Unremarkable. ADRENAL GLANDS: Unremarkable. KIDNEYS/URETERS: Unremarkable. BOWEL: No bowel obstruction. No significant bowel wall thickening. No localized inflammation. APPENDIX: No evidence of appendicitis. FREE FLUID: No significant free fluid. FREE AIR: None. LYMPH NODES: No pathologic appearing adenopathy. PERITONEUM, RETROPERITONEUM AND MESENTERY: Otherwise unremarkable. VASCULATURE: Unremarkable as imaged. ABDOMINAL WALL: Unremarkable. PELVIS: Unremarkable bladder. OSSEOUS AND SOFT TISSUE STRUCTURES: No acute skeletal findings. CT/Abdomen/Pelvis without Cont IMPRESSION: No acute abdominopelvic abnormality. Individualized dose optimization techniques were used for this CT. at 2204 Reported and signed by: Olga Batista MD Electronically Signed: Olga Batista MD at 22:04 EDT Tel , Service support ,
[2020-09-02] MEDS: 0.9% Normal Saline 1,000 ML 1000 ML IV (21:14)
[2020-09-02] MEDS: Ketorolac 30 MG/ML Syringe IV (21:15)
[2020-09-02] MEDS: Ondansetron 4 MG/2 ML Vial IV (21:15)
[2020-09-02 21:25] LABS: Absolute Neutrophil Count 6.4 X10^3/uL (2.0-7.7); Basophil# 0.05 X10^3/uL; Basophil% 0.5 % (0-1); Eosinophil# 0.14 X10^3/uL; Eosinophils% 1.4 % (0-5); Hematocrit 38.5 % (37-47); Hemoglobin 11.8 g/dL (12.0-15.0); Lymphocyte % 24.2 % (19-41); Mean Corp Hgb Conc 30.6 g/dL (32-36); Mean Corpuscular Hgb 28.6 pg (27.0-32.0); Mean Corpuscular Volume 93.4 fL (81-99); Monocyte# 0.88 X10^3/uL; Monocyte% 8.9 % (0-10); NRBC Flagged by Analyzer 0 % (0-5); Neutrophil # 6.42 X10^3/uL (2.7-7.7); Neutrophil % 64.8 % (47-70); Platelet Count 277 K/mm3 (150-450); RBC Distribution Width CV 12.1 % (11.6-14.6); Red Blood Count 4.12 M/mm3 (4.2-5.4); White Blood Count 9.9 K/mm3 (4.4-11.0)
[2020-09-02] MEDS: Ceftriaxone 1 GM/50 ML BAG IV (21:35)
[2020-09-02 21:42] LABS: ALB/GLOB Ratio 0.9 RATIO (0.9-2.4); AST(SGOT) 6 U/L (15-37); Alanine Aminotransfer ALT/SGPT 16 U/L (13-56); Albumin, Serum 3.7 g/dL (3.2-5.0); Alkaline Phosphatase 54 U/L (45-117); Anion Gap 3 (5-15); BUN 17 mg/dL (7-18); BUN/Creat Ratio 22.7 RATIO (10-20); Calcium,Total 9.1 mg/dL (8.5-10.1); Chloride 109 mmol/L (98-107); Creatinine, Serum 0.75 mg/dL (0.55-1.02); EST Glomerular Filtration Rate 97 mL/min (>60); Est Glom Filt Rate - Afr Amer 117 mL/min (>60); Estimated Creatinine Clearance 103.61 ml/min; Globulin 4.1 g/dL (2.2-4.2); Glucose 79 mg/dL (74-106); Lipase 283 U/L (73-393); Potassium 3.6 mmol/L (3.5-5.1); Protein, Total 7.8 g/dL (6.4-8.2); Sodium Level 141 mmol/L (136-145)
[2020-09-02 22:00] VITALS: BP 120/71; PULSE 68; RESP 20; O2SAT 97
--- NOTE | 2020-09-03 00:02 | ED.VIS.GI ---
HPI HPI - GI History of Present Illness Chief Complaint: Abd Pain Informant: patient Abdominal Pain/Flank Pain Onset: Today Context: Sudden Onset Timing: Continuous Quality: Cramping Location: RLQ and Right Flank Worsened by: Nothing Relieved by: Nothing Nausea/Vomiting/Emesis GI Symptom: Positive for Nausea; Negative for Vomiting Diarrhea/Melena/Hematochezia GI Symptom: Negative for Diarrhea, Melena and Hematochezia Associated Symptoms Associated Symptoms: Negative for Dysuria and Hematuria LMP: 08/21/2020 Narrative Narrative: Patient presents with abdominal pain that began today. Patient states the pain began suddenly. Patient states the pain is over her lower abdomen and right flank area. Patient states the pain is been constant. Patient describes pain as cramping. Patient admits to nausea but denies any vomiting. Patient states nothing makes it better and nothing makes it worse. Patient states her last menstrual period was 08/21/2020. Patient denies any urinary complaints. Patient denies any diarrhea, melena, or hematochezia. PFSH PFS Medical History Asthma Home Medications citalopram 20 mg tablet 20 mg PO DAILY #90 tab 08/17/20 [Rx Last Taken Unknown] cephalexin 500 mg PO Q6 #20 capsule 09/03/20 [Rx Last Taken Unknown] Allergy/AdvReac Type Severity Reaction Status Date / Time hydrocodone [From Vicodin] Allergy Hives Verified 09/02/20 19:41 latex Allergy Hives Verified 09/02/20 19:41 Surgical History H/O tubal ligation History of appendectomy History of ovarian cystectomy Social History number of children: 3 current occupational status: unemployed Smoking Status: Former smoker alcohol intake: current details: occasionally substance use type: does not use caffeine: Yes what type of physical activity do you participate in: walking frequency: daily seatbelt use: always do you feel safe at home: Yes additional social history: ROS ROS ED Constitutional Constitutional ED: Denies chills or fever(s) Eyes Eyes: Denies blurry vision or change in vision ENT ENT ED: Denies rhinorrhea or sore throat Cardiovascular Cardiovascular: Denies chest pain or palpitations Respiratory/Chest Respiratory/Chest: Denies cough or dyspnea Gastrointestinal Gastrointestinal: Reports abdominal pain and nausea; Denies diarrhea or vomiting Genitourinary Genitourinary ED: Denies dysuria or hematuria Musculoskeletal Musculoskeletal: Reports back pain; Denies neck pain Integumentary Denies abscess or rash Neurologic Neurologic: Denies headache(s) or weakness Allergic/Immunologic Allergic/Immunologic ED: Denies mouth swelling or urticaria EXAM Physical Exam Const Vital Signs: 09/02/20 19:39 09/02/20 22:00 09/03/20 00:08 Temperature 97.2 F L Temperature Source Temporal Pulse Rate 81 68 52 L Respiratory Rate 16 20 H Blood Pressure 114/69 120/71 123/69 H Blood Pressure Mean 84 87 Pulse Ox 100 97 99 Oxygen Delivery Method Room Air Room Air Positive well nourished and well developed General Appearance ED: well developed HEENT Reports moist mucous membranes normocephalic Neck supple and no JVD Resp normal respiratory effort and clear to auscultation bilaterally Cardio regular rate and regular rhythm GI non-distended Auscultation: normoactive bowel sounds Palpation: soft and tender RLQ; Negative for guarding or rebound tenderness present Back/Spine General Back: CVA tenderness right Extremity full ROM General Extremety ED: Negative for edema or tenderness General Extremity: Negative for edema Neuro CN's II-XII intact bilaterally, moves all extremities and no sensory deficits noted Sensorium / Orientation: alert, oriented to person, oriented to place and oriented to time Psych mental status grossly normal MDM MDM MDM Narrative Medical decision making narrative: Patient was given IV fluids, Toradol, and Zofran. CBC and comprehensive metabolic profile were essentially within normal limits. Urinalysis shows leukocyte esterase of 500 with 25-50 white blood cells. Patient was given a dose of Rocephin here. CT scan of the abdomen and pelvis was obtained. There is no acute intra-abdominal pathology. There is no ureteral calculus. This was interpreted by the radiologist and reviewed by myself. Patient was given a prescription for Keflex. Patient was instructed to follow-up with her primary care physician in 5 to 7 days. Patient understood and was agreeable with the plan. All questions were answered. Lab Data Attestation: I reviewed the patient's lab results. Labs: Laboratory Results - last 24 hr 09/02/20 09/02/20 09/02/20 19:50 21:15 21:15 WBC 9.9 RBC 4.12 L Hgb 11.8 L Hct 38.5 MCV 93.4 MCH 28.6 MCHC 30.6 L RDW Std Deviation 42.0 RDW Coeff of Ritika 12.1 Plt Count 277 MPV 10.0 Immature Gran % (Auto) 0.200 Neut % (Auto) 64.8 Lymph % (Auto) 24.2 [place] % (Auto) 8.9 Eos % (Auto) 1.4 Baso % (Auto) 0.5 Absolute Neuts (auto) 6.4 Absolute Lymphs (auto) 2.40 Nucleated RBC % 0 Sodium 141 Potassium 3.6 Chloride 109 H Carbon Dioxide 29.0 Anion Gap 3 L BUN 17 Creatinine 0.75 Estim Creat Clear Calc 103.61 Est GFR (MDRD) Af Amer 117 Est GFR (MDRD) Non-Af 97 BUN/Creatinine Ratio 22.7 H Glucose 79 Calcium 9.1 Total Bilirubin 0.50 AST 6 L ALT 16 Alkaline Phosphatase 54 Total Protein 7.8 Albumin 3.7 Globulin 4.1 Albumin/Globulin Ratio 0.9 Lipase 283 Urine Color Yellow Urine Clarity Sl. Cloudy Urine pH 5.0 Ur Specific [place] 1.030 Urine Protein 30 H Urine Glucose (UA) 100 H Urine Ketones Negative Urine Occult Blood 150 H Urine Nitrite Negative Urine Bilirubin Negative Urine Urobilinogen 1 H Ur Leukocyte Esterase 500 H Urine RBC 0-5 SEEN Urine WBC 25-50 SEEN Ur Squamous Epith Cells 0-5 SEEN Urine Bacteria RARE Urine Mucus 0 SEEN Radiography Diagnostic Testing: Radiology Impression Abdomen/Pelvis CT 09/02/20 20:27 IMPRESSION: No acute abdominopelvic abnormality. Individualized dose optimization techniques were used for this CT. at 2204 Reported and signed by: Olga Batista MD Electronically Signed: Olga Batista MD at 22:04 EDT Tel , Service support , Discharge Plan Triage Chief Complaint: Abd Pain ED Provider: Thom Wilkinson Dx/Rx/DC Orders Clinical Impression: Urinary tract infection Instructions: ED Bladder Infection, Female (Adult) Prescriptions: New cephalexin [cephalexin] 500 MG capsule 500 mg PO Q6 Qty: 20 RF: 0 No Action citalopram [Celexa] 20 mg tablet 20 mg PO DAILY Qty: 90 RF: 0 Primary Care Provider: Fortunato Hardy Referrals: Fortunato Hardy MD [Primary Care Provider] - 5-7 Days Disposition Disposition: Home, self care Discharge Date/Time: 09/03/20 00:19
[2020-09-03 00:08] VITALS: BP 123/69; PULSE 52; O2SAT 99
== END 2020-09-03 00:19 | disposition home or self-care (01) ==
PROVIDERS: Emergency Provider Emergency Medicine; PCP Family Medicine
DX: N39.0 Urinary tract infection, site not specified (principal); Z87.891 Personal history of nicotine dependence
CPT/HCPCS: 74176; 80053; 81001; 83690; 85025; 96365; 96375; 99285; A4216; J2405

== ENCOUNTER 2025-03-23 13:18 | Emergency (ER) | payer MEDICAID, SELFPAY ==
[2025-03-23 13:18] VITALS: BP 134/84; PULSE 69; RESP 16; TEMP 36.6; O2SAT 100; BMI 24.0
[2025-03-23 14:20] LABS: Hematocrit 36.3 % (37-47); Hemoglobin 11.1 g/dL (12.0-15.0); Immature Granulocytes Count 0.020 X10^3/uL (0.0-0.0); Mean Corp Hgb Conc 30.6 g/dL (32-36); Mean Corpuscular Volume 90.5 fL (81-99); Mean Platelet Vol. 10.4 fl (6.2-12.0); NRBC Flagged by Analyzer 0 % (0-5); Platelet Count 339 K/mm3 (150-450); RBC Distribution Width CV 13.8 % (11.6-14.6); RBC Distribution Width SD 46.4 fl (35.1-43.9); Red Blood Count 4.01 M/mm3 (4.2-5.4); White Blood Count 6.6 K/mm3 (4.4-11.0)
[2025-03-23 14:37] LABS: Anion Gap 12 (5-15); BUN 13 mg/dL (4-19); BUN/Creat Ratio 16.3 RATIO (10-20); Calcium,Total 9.1 mg/dL (7.6-11.0); Carbon Dioxide 24.5 mmol/L (21.0-32.0); Chloride 107 mmol/L (98-108); Estimated Creatinine Clearance 96.37 ml/min (50-250); Glucose 90 mg/dL (70-99); Potassium 3.7 mmol/L (3.3-5.1)
[2025-03-23 14:40] LABS: Internal QC Validated? YES +Cl - CLEAR BKGD; Pregnancy, Serum, hCG Quali. NEGATIVE Negative; Record Kit Lot#, Serum Preg. 0000980607
--- NOTE | 2025-03-23 14:57 | CT_ITS ---
PROCEDURE: ABDOMEN/PELVIS W IV CONT ONLY 03/23/2025 REASON FOR EXAM: LEFT FLANK PAIN TECHNIQUE: Procedure Code: [id number] Modality: CT Procedure: ABDOMEN/PELVIS W IV CONT ONLY Coronal and Sagittal reconstruction series were provided. CONTRAST: VOLUME: mL One or more dose reduction techniques were used (e.g., Automated exposure control, adjustment of the mA and/or kV according to patient size, use of iterative reconstruction technique. COMPARISON: 09/02/20. FINDINGS: The visualized lung bases are clear. The liver, gallbladder, pancreas, spleen, adrenal glands, kidneys, and urinary bladder appear unremarkable. The uterus is mildly prominent and contains fluid within its cavity. A prominent 1.3 cm physiologic ovarian follicle is noted in the left ovary (series 2, image 102). Please correlate with the patient's menstrual cycle. No evidence of a bowel obstruction. No bowel wall thickening. The appendix is visualized and unremarkable. No intraperitoneal free air or free fluid. No abdominal nor pelvic lymphadenopathy. No acute osseous abnormality. No acute fracture. CT/Abdomen/Pelvis W IV Cont ONLY IMPRESSION: Mildly prominent uterus with fluid within its cavity. Prominent left ovarian p hysiologic follicle measuring 1.3 cm. Please correlate with the patient's menstrual cycle. Reading Location: [id number]
[2025-03-23 15:18] VITALS: BP 144/93; PULSE 55; O2SAT 100
[2025-03-23 15:22] LABS: Red Blood Cells-Urine 0 SEEN /hpf (0-5)
[2025-03-23 15:24] LABS: Color, Urine Yellow (Yellow); Glucose, Dipstick Normal (Normal); Ketone-Dipstick Negative (Negative); Leukocyte Esterase-Dipstick 25 /ul (Negative); Nitrite-Dipstick Positive (Negative); Occult Blood-Urine 25 /ul (Negative); Protein-Dipstick 30 mg/dl (Negative); Specific Gravity, Urine 1.015 (1.002-1.030); Urine Bilirubin Dipstick Negative (Negative)
[2025-03-23 15:30] LABS: Mucous, Urine 1+ /hpf (<or=2+); Squamous Epithelial Cells - UA 0-5 SEEN /hpf (5-10)
--- NOTE | 2025-03-23 15:55 | EDS_ITS ---
HPI History of Present Illness Chief Complaint: Abd Pain Informant: patient Narrative Narrative: 34-year-old female presenting to the emergency room with left flank and side pain. Patient notes symptoms for over 2 weeks. Worse with touch. She states she feels better if she lays on her stomach. She called her [employer]'s office whom she has not seen for over 3 years and they recommended urgent care or emergency department evaluation. Patient states she went to urgent care and was sent to emergency. She denies any fevers. She denies urinary symptoms. She states that this does not feel like a kidney stone. Has not had any rash. No change in bowel movements. [facility] Medical History (Updated 03/23/25 @ 16:[address] Imer Putnam DO) Asthma Home Medications ?Medication ?Instructions ?Recorded ?Last Taken ?Type pediatric multivitamin 1 tab PO DAILY 03/23/25 1205/17 History no.203-ferrous sulfate 18 mg chewable tablet (Flintstones with Iron) sulfamethoxazole 800 1 tab PO BID #14 TABLETS 05/17 Unknown Rx mg-trimethoprim 160 mg tablet Allergy/AdvReac Type Severity Reaction Status Date / Time hydrocodone (From Vicodin) Allergy Hives Verified 03/23/25 13:21 latex Allergy Hives Verified 03/23/25 13:21 Family History no significant family his Surgical History History of ovarian cystectomy History of appendectomy H/O tubal ligation Social History number of children: 3 current occupational status: unemployed Smoking Status: Former smoker alcohol intake: current details: occasionally substance use type: does not use caffeine: Yes what type of physical activity do you participate in: walking frequency: daily seatbelt use: always do you feel safe at home: Yes additional social history: ROS ROS ED Constitutional Constitutional ED: Denies chills, fever(s) or weight loss Eyes Eyes: Denies change in vision or diplopia ENT ENT ED: Denies ear pain, rhinorrhea or sore throat Cardiovascular Cardiovascular: Denies chest pain, orthopnea, palpitations or racing heartbeat Respiratory/Chest Respiratory/Chest: Denies cough, dyspnea or orthopnea Gastrointestinal Gastrointestinal: Reports abdominal pain and nausea; Denies diarrhea or vomiting Genitourinary Genitourinary ED: Reports other Details: No vaginal discharge. She notes irregular periods ; Denies dysuria, hematuria or urinary frequency Musculoskeletal Musculoskeletal: Reports back pain; Denies arthralgias or myalgias Integumentary Denies abscess or rash Neurologic Neurologic: Denies headache(s) or weakness Psychiatric Psychiatric: Denies anxiety, depression, suicidal ideation or suicidal thoughts Endocrine Endocrinology: Denies polydipsia, polyphagia or polyuria Allergic/Immunologic Allergic/Immunologic ED: Denies mouth swelling, tongue swelling or urticaria EXAM Physical Exam Const Vital Signs: 03/23/25 13:18 03/23/25 15:18 03/23/25 16:07 Temperature 98 F 98 F Temperature Source Oral Pulse Rate 69 55 L 55 L Respiratory Rate 16 16 Blood Pressure 134/84 H 144/93 H 144/93 H Blood Pressure Mean 100 110 110 Pulse Ox 100 100 100 Oxygen Delivery Method Room Air Positive well nourished and well developed General Appearance ED: well developed HEENT Reports normocephalic, head/scalp atraumatic and moist mucous membranes Eyes PERRL and EOMs intact bilaterally Neck no lymphadenopathy, supple and no JVD Resp normal respiratory effort and clear to auscultation bilaterally Cardio regular rate, regular rhythm and no murmurs GI normal to inspection, nondistended, normoactive bowel sounds and non-tender Palpation: soft Back/Spine normal ROM Back/Spine Narrative: Patient notes exquisite tenderness to light palpation of the skin in the left CVA lower lumbar region and left mid axillary abdominal areas. No rash or ecchymosis is seen. Extremity normal to inspection General Extremety ED: Negative for edema General Extremity: Negative for edema Neuro oriented x3 and CN's II-XII intact bilaterally Sensorium / Orientation: alert Motor Exam: strength 5/5 throughout Psych mental status grossly normal Mood & Affect: Negative for depressed or tearful Skin no rashes or lesions noted and no wounds MDM MDM MDM Narrative Medical decision making narrative: Differential diagnosis includes but not limited to ovarian cyst UTI kidney stone colitis zoster ectopic test is negative urinalysis with 3+ bacteria 0-5 white cells 25 leukocyte esterase positive nitrates 0-5 red cells. 0-5 squamous cells. This will be sent for culture. Patient's white count 6.6 hemoglobin 11.1 platelet count is 339. BMP within normal limits. CT of the abdomen pelvis with IV contrast obtained read by radiology. Please see that read for full details. Patient notes very irregular periods sometimes going months in between menstruation. She is not currently menstruating but states that sometimes she will start to bleed and bleed for 2 weeks without any warning. Patient is not tender in the suprapubic region. She is tender in the left flank. I explained the above results to the patient will place her on Bactrim as we wait for urine culture. Have asked that she follow-up with primary care and also with gynecology. History & Record Review Discussion w/independent historian: Patient Additional record(s) reviewed:: Prior ED visit and Prior labs Lab Data Attestation: I reviewed the patient's lab results. Labs: Laboratory Results - last 24 hr 03/23/25 03/23/25 13:41 15:07 WBC 6.6 RBC 4.01 L Hgb 11.1 L Hct 36.3 L MCV 90.5 MCH 27.7 MCHC 30.6 L RDW Std Deviation 46.4 H RDW Coeff of Ritika 13.8 Plt Count 339 MPV 10.4 Immature Gran % (Auto) 0.300 Neut % (Auto) 69.5 Lymph % (Auto) 22.6 [place] % (Auto) 5.3 Eos % (Auto) 1.7 Baso % (Auto) 0.6 Absolute Neuts (auto) 4.6 Absolute Lymphs (auto) 1.50 Nucleated RBC % 0 Sodium 143 Potassium 3.7 Chloride 107 Carbon Dioxide 24.5 Anion Gap 12 BUN 13 Creatinine 0.77 Estim Creat Clear Calc 96.37 Est GFR (MDRD) Non-Af 103 BUN/Creatinine Ratio 16.3 Glucose 90 Calcium 9.1 Serum , Qual NEGATIVE Urine Color Yellow Urine Clarity Sl. Cloudy Urine pH 6.5 Ur Specific [place] 1.015 Urine Protein 30 H Urine Glucose (UA) Normal Urine Ketones Negative Urine Occult Blood 25 H Urine Nitrite Positive H Urine Bilirubin Negative Urine Urobilinogen Normal Ur Leukocyte Esterase 25 H Urine RBC 0 SEEN Urine WBC 0-5 SEEN Ur Squamous Epith Cells 0-5 SEEN Urine Bacteria 3+ Urine Mucus 1+ Radiography Diagnostic Testing: Clinical Impression(s) from Imaging Studies Abdomen/Pelvis CT 03/23/25 14:57 IMPRESSION: Mildly prominent uterus with fluid within its cavity. Prominent left ovarian physiologic follicle measuring 1.3 cm. Please correlate with the patient's menstrual cycle. Reading Location: [id number] Discharge Plan Triage Chief Complaint: Abd Pain ED Provider: Imer Putnam Dx/Rx/DC Orders Clinical Impression: Acute flank pain Prescriptions: New sulfamethoxazole-trimethoprim 800-160 mg tablet 1 tab PO BID Qty: 14 0RF No Action Flintstones with Iron 18 mg iron tablet,chewable 1 tab PO DAILY Primary Care Provider: Fortunato Hardy Referrals: Fortunato Hardy MD [Primary Care Provider, Family Practice] - 3-5 Days if not improving Wendy Mortensen MD [Med Staff - Active Staff, Obstetrics-Gynecology (OBGYN)] - As soon as possible Referral Note: for gynecology Print Language: [place] Disposition Disposition: Home, Self Care
[2025-03-23 16:07] VITALS: BP 144/93; PULSE 55; RESP 16; TEMP 36.6; O2SAT 100
== END 2025-03-23 16:14 | disposition home or self-care (01) ==
PROVIDERS: Emergency Provider Emergency Medicine; PCP Family Medicine; Visit Provider Emergency Medicine
DX: R10.A2 Flank pain, left side (principal); Z87.891 Personal history of nicotine dependence
CPT/HCPCS: 74177; 80048; 81001; 84703; 85025; 87077; 87086; 87088; 87186; 99283; Q9967; A4216